=== PATIENT | male | born 1975 | race Caucasian/White ===

== ENCOUNTER 2016-10-13 10:42 | Emergency (ER) | payer MEDICAID, OTHER ==
[2016-10-13] MEDS ORDERED: Ibuprofen TAB* 800 MG PO ONE (11:23)
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
--- NOTE | 2016-10-13 11:52 | RAD ---
INDICATION: Left shoulder injury. TECHNIQUE: 3 views of the left shoulder were obtained. FINDINGS: There is deformity of the lateral aspect of the humeral head and metaphysis likely posttraumatic. There is a single surgical strut present. No acute fracture is seen. Joint spaces appear maintained. IMPRESSION: DEFORMITY OF THE PROXIMAL HUMERUS LIKELY POSTTRAUMATIC, NO ACUTE FRACTURE IS SEEN.
[2016-10-13] MEDS ORDERED: Cyclobenzaprine TAB* 10 MG PO ONE (12:08)
[2016-10-13 12:30] VITALS: BP 120/83
== END 2016-10-13 12:29 | disposition home or self-care (01) ==
LOC: ED 10:42
DX: M25.512 Pain in left shoulder (principal)
CPT/HCPCS: 99282; A9270-GY

== ENCOUNTER 2016-10-31 13:47 | Emergency (ER) | payer OTHER ==
[2016-10-31] MEDS ORDERED: Gabapentin CAP(*) 300 MG PO ONE (14:01)
[2016-10-31] MEDS ORDERED: Gabapentin CAP(*) 400 MG PO ONE (15:00)
[2016-10-31] MEDS ORDERED: Gabapentin CAP(*) 300 MG ONE (15:19)
[2016-10-31] MEDS ORDERED: Gabapentin CAP(*) 100 MG ONE (15:19)
[2016-10-31] MEDS ORDERED: Ibuprofen TAB* 800 MG PO ONE (15:20)
--- NOTE | 2016-10-31 15:57 | RAD ---
Indication: Left arm pain with swelling over the biceps area. CT of the left upper arm was performed without IV contrast. Coronal and sagittal reconstructed images were obtained. The patient has had prior repair to the biceps tendon. Deformity of the lateral aspect of the greater tuberosity is again noted with what appears to be a bony fragment present in the posterior aspect of the humeral head within the infraspinatus muscle. This is a chronic finding and was present on a prior x-ray dated October 13, 2016. There is a fluid collection in the mid shaft of the humerus just deep to the biceps muscle measuring 4.4 x 2.5 x 2.6 cm. IMPRESSION: Fluid collection just deep to the biceps muscle region in the proximal diaphysis of the humerus measuring 4.4 x 2.6 x 2.5 cm. No evidence of fracture is identified. Chronic bony changes and deformity of the humeral head is noted unchanged from prior x-rays.
--- NOTE | 2016-10-31 16:50 | ED ---
Luis Bundy Alok, scribed for Kena Garcia MD on 10/31/16 at 1434 . Upper Extremity Pain - HPI Summary HPI Summary: 41 y/o male presents to the ED with c/o pain in his LUE. Pt states he last had left shoulder surgery 2 years ago. No other PMHx at this time. - History of Current Complaint Chief Complaint: EDExtremityUpper Stated Complaint: LEFT ARM PAIN Time Seen by Provider: 10/31/16 13:50 Hx Obtained From: Patient Onset/Duration: Started Days Ago, Atraumatic, Still Present Timing: Constant Severity Initially: Moderate Severity Currently: Moderate Pain Location: Shoulder - Left Character: Sharp Aggravating Factor(s): Nothing Alleviating Factor(s): Nothing Associated Signs & Symptoms: Positive: Negative - Allergies/Home Medications Allergies/Adverse Reactions: Allergies Allergy/AdvReac Type Severity Reaction Status Date / Time No Known Allergies Allergy Verified 10/31/16 13:49 PMH/Surg Hx/FS Hx/Imm Hx Endocrine/Hematology History: Denies: Hx Diabetes Cardiovascular History: Denies: Hx Hypertension, Hx Pacemaker/ICD Respiratory History: Denies: Hx Asthma History: Denies: Hx Dialysis, Hx Renal Disease Musculoskeletal History: Reports: Hx Rheumatoid Arthritis, Other Musculoskeletal History - chronic left shoulder pain and previous surgery. Sensory History: Denies: Hx Hearing Aid Neurological History: Reports: Other Neuro Impairments/Disorders - Hx Concussions Psychiatric History: Reports: Hx Anxiety, Hx Depression, Hx of Violent Episodes Against Others, Hx Substance Abuse Denies: Hx Eating Disorder, Hx Panic Disorder - Surgical History Surgery Procedure, Year, and Place: plastic surgery to face from a laceration to cheek Infectious Disease History: Yes Infectious Disease History: Denies: Traveled Outside the [place] in Last 30 Days - Family History Known Family History: Positive: Cardiac Disease, Respiratory Disease, Other - cancer, alcoholism, anxiety, depression - Social History Occupation: Unemployed Alcohol Use: None Hx Substance Use: No Substance Use Type: Reports: None, Marijuana Substance Use Comment - Amount & Last Used: has hx cocaine /heroin use 6 months ago Hx Tobacco Use: Yes Smoking Status (MU): Light Every Day Tobacco Smoker Type: Cigarettes, Smokeless Tobacco Review of Systems Negative: Fever Positive: Other - Left Shoulder Pain All Other Systems Reviewed And Are Negative: Yes Physical Exam Triage Information Reviewed: Yes Vital Signs On Initial Exam: Initial Vitals Temp Pulse Resp BP Pulse Ox 96.9 F 65 16 142/95 100 10/31/16 13:49 10/31/16 13:49 10/31/16 13:49 10/31/16 13:49 10/31/16 13:49 Vital Signs Reviewed: Yes Appearance: Positive: Well-Appearing, No Pain Distress Skin: Positive: Warm, Skin Color Reflects Adequate Perfusion, Dry Eyes: Positive: EOMI, ROMEO ENT: Positive: Pharynx normal, TMs normal Neck: Positive: Supple, Nontender Respiratory/Lung Sounds: Positive: Clear to Auscultation, Breath Sounds Present. Negative: Rales, Rhonchi, Wheezes Cardiovascular: Positive: RRR. Negative: Murmur, Rub, Other - Gallops Abdomen Description: Positive: Nontender, Soft Bowel Sounds: Positive: Present Musculoskeletal: Positive: Strength/ROM Intact, Other - 5 cm swelling over medial epicondyle of the humerus Diagnostics - Vital Signs Vital Signs Temp Pulse Resp BP Pulse Ox 10/31/16 13:49 96.9 F 65 16 142/95 100 - Laboratory Lab Statement: Any lab studies that have been ordered have been reviewed, and results considered in the medical decision making process. - CT Upper Extremity CT CT Interpretation: Positive (See Comments) - IMPRESSION: Fluid collection just deep to the biceps muscle region in the proximal diaphysis of the humerus measuring 4.4 x 2.6 x 2.5 cm. No evidence of fracture is identified. Chronic bony changes and deformity of the humeral head is noted unchanged from prior x- rays. CT Interpretation Completed By: Radiologist Course/Dx - Course Course Of Treatment: discussion with both Dougie and Cam, fluid collection does not look like blood or abscess. Cam to see pt as out pt likely will need an outpt mri - Diagnoses Provider Diagnoses: Shoulder pain, left - Physician Notifications Discussed Care Of Patient With: Dr. Levy (Ortho) @ 1840 Discharge - Discharge Plan Condition: Stable Disposition: HOME The documentation as recorded by the Luis guardado Alok accurately reflects the service I personally performed and the decisions made by me, Kena Garcia MD.
[2016-10-31 17:32] VITALS: BP 136/73
== END 2016-10-31 17:31 | disposition home or self-care (01) ==
LOC: ED 13:47
DX: M25.512 Pain in left shoulder (principal); M79.602 Pain in left arm; F17.210 Nicotine dependence, cigarettes, uncomplicated
CPT/HCPCS: 99281; A9270-GY

== ENCOUNTER → 2016-12-16 17:12 | Emergency (ER) | payer OTHER ==
--- NOTE | 2016-12-16 18:29 | RAD ---
HISTORY: Foreign body COMPARISONS: None VIEWS: 2: Frontal dual-energy and lateral views of the chest. FINDINGS: CARDIOMEDIASTINAL SILHOUETTE: The cardiomediastinal silhouette is normal. YINKA: The yinka are normal. PLEURA: The costophrenic angles are sharp. No pleural abnormalities are noted. There is no appreciable pneumothorax. LUNG PARENCHYMA: The lungs are clear. ABDOMEN: The upper abdomen is clear. There is no subphrenic gas. BONES AND SOFT TISSUES: No bone or soft tissue abnormalities are noted. OTHER: There is a 0.8 cm radiopaque foreign body overlying the superior margin of the right clavicle IMPRESSION: LINEAR FOREIGN BODY OVERLYING THE RIGHT CLAVICLE. NO ACTIVE CARDIOPULMONARY DISEASE.
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
== END | disposition home or self-care (01) ==
LOC: ED 17:12
DX: S11.84XA Puncture wound with foreign body of other specified part of neck, initial encounter (principal); W27.3XXA Contact with needle (sewing), initial encounter; Y93.9 Activity, unspecified; Y92.9 Unspecified place or not applicable
CPT/HCPCS: 71020; 99282

== ENCOUNTER → 2017-02-04 08:52 | Emergency (ER) | payer OTHER ==
[2017-02-04 09:02] VITALS: BP 137/81
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
== END ==
LOC: ED 08:52
DX: M25.512 Pain in left shoulder (principal); M79.1 Myalgia; F17.210 Nicotine dependence, cigarettes, uncomplicated
CPT/HCPCS: 99281

== ENCOUNTER → 2017-02-15 14:32 | Emergency (ER) | payer OTHER ==
[~2017-02-15 14:32] MED LIST: Buprenorphine/Naloxone 8-2 MG SL TAB* 1 TAB PO ONE; Gabapentin CAP(*) 400 MG PO ONE; Sulfamethox/Trimethoprim DS 800/160* TAB PO ONE
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
[2017-02-15 19:03] VITALS: BP 131/78
== END | disposition home or self-care (01) ==
LOC: ED 14:32
DX: L02.414 Cutaneous abscess of left upper limb (principal); M06.9 Rheumatoid arthritis, unspecified; F17.210 Nicotine dependence, cigarettes, uncomplicated
CPT/HCPCS: 99282; A9270-GY

== ENCOUNTER 2017-08-02 14:53 | Inpatient (IN) | payer OTHER ==
[2017-08-02 16:27] LABS: ABS Basophils 0.1 10^3/ul (0-0.2); ABS Eosinophils 0.1 10^3/ul (0-0.6); ABS Lymphocytes 1.8 10^3/ul (1.0-4.8); ABS Monocytes 0.5 10^3/ul (0-0.8); ABS Neutrophils 4.1 10^3/ul (1.5-7.7); ABS Nucleated RBC 0.01 10^3/ul; Eosinophil % 2.2 % (0-6); Hematocrit 42 % (42-52); Hemoglobin 14.3 g/dl (14.0-18.0); Lymphocyte % 27.4 % (25-47); Mean Corpuscular HGB Conc 34 g/dl (31-36); Mean Corpuscular Hemoglobin 27 pg (27-31); Mean Corpuscular Volume 80 fL (80-94); Mean Platelet Volume 8 um3 (7.4-10.4); Nucleated Red Blood Cells % 0.2; Platelet Count 233 10^3/ul (150-450); Red Blood Count 5.24 10^6/ul (4.0-5.4); Red Cell Distribution Width 13 % (10.5-15); White Blood Count 6.6 10^3/ul (3.5-10.8)
[2017-08-02 16:44] LABS: EGFR Non-African American 128.9 (>60)
--- NOTE | 2017-08-02 16:48 | RAD ---
INDICATION: Left shoulder wound COMPARISON: None TECHNIQUE: An AP portable view obtained at 1615 hours is submitted. FINDINGS: Bones/Soft Tissues: There are no acute bony findings. Cardiomediastinal: The cardiomediastinal silhouette is normal. Lungs: There are no infiltrates. Pleura: There are no pleural effusions. Other: None IMPRESSION: NO ACTIVE DISEASE.
[2017-08-02] MEDS ORDERED: Ketorolac INJ* 30 MG/ML 1 ML VIAL IV PUSH ONE (16:55)
[2017-08-02] MEDS ORDERED: Diazepam SYRINGE* 5 MG/ML 2 ML SYRINGE (10 MG total) IV ONE (16:56)
[2017-08-02 16:59] LABS: INR 0.89 (0.77-1.02)
[2017-08-02] MEDS: NS 0.9% 1000 ML*IV.FLUID IV ONE (17:28)
--- NOTE | 2017-08-02 17:32 | RAD ---
INDICATION: Left shoulder pain. Advanced degenerative disease. Prior surgery. Septic arthritis. COMPARISON: MRI December 19, 2016; left humerus November 16, 2016 TECHNIQUE: AP, lateral, and oblique views were obtained. FINDINGS: There is resection osteolysis about the lateral margin of the humeral head and neck. There is orthopedic screw centered in an area of rarefaction at the level of the neck. There is very little radiographic change. There is advanced degenerative change about the glenohumeral joint with joint space narrowing. The remaining portion of the humeral head is high riding. There is soft tissue swelling about the proximal humerus. No additional findings. IMPRESSION: CHRONIC DEGENERATIVE AND POSTSURGICAL CHANGES WITH PRESUMED OSTEOLYSIS RELATED TO SURGERY AND/OR OSTEOMYELITIS. THE FINDINGS ARE ESSENTIALLY UNCHANGED.
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
[2017-08-02 20:03] LABS: Urine Appearance Clear; Urine Blood Negative (Negative); Urine Color Amber; Urine Ketones Negative (Negative); Urine Protein Negative (Negative); Urine Specific Gravity 1.036 (1.010-1.030); Urine Urobilinogen Positive (Negative)
[2017-08-02] MEDS ORDERED: Ondansetron INJ* 2 MG/ML VIAL IV PRN (20:27)
[2017-08-02] MEDS ORDERED: HYDROmorphone INJ* 2 MG/ML CARPUJECT SYRINGE IV SLOW PU ONE (20:27)
[2017-08-02] MEDS ORDERED: Acetaminophen TAB* 325 MG PO PRN (20:27)
[2017-08-02] MEDS: NS 0.9% 1000 ML* 1,000 ML IV SCH (22:53)
[2017-08-02] MEDS: ceFAZolin 2 GM PREMIX (*) 2 GM/50 ML BAG IVPB SCH (22:55)
[2017-08-02] MEDS: Gabapentin CAP(*) 400 MG PO SCH (22:57)
[2017-08-02] MEDS: Heparin VIAL(*) 5000 UNITS/ML VIAL (FIVE THOUSAND) SUBCUT SCH (22:58)
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
[2017-08-03] MEDS: Heparin VIAL(*) 5000 UNITS/ML VIAL (FIVE THOUSAND) SUBCUT SCH ×3 (05:22→22:37)
[2017-08-03] MEDS: ceFAZolin 2 GM PREMIX (*) 2 GM/50 ML BAG IVPB SCH ×3 (05:23→22:22)
[2017-08-03] MEDS: oxyCODONE/Acetamin 5/325 MG* TAB PO PRN ×4 (06:14→23:29)
[2017-08-03] MEDS: Gabapentin CAP(*) 400 MG PO SCH ×3 (07:42→20:00)
--- NOTE | 2017-08-03 08:47 | RAD ---
INDICATION: Osteomyelitis left shoulder. COMPARISON: Comparison is made with prior x-ray studies of the left shoulder from November 16, 2016 and August 02, 2017. TECHNIQUE: Axial, sagittal and coronal T1 and T2-weighted images of the left shoulder were obtained. FINDINGS: There are postoperative changes from a presumed rotator cuff tendon repair. There is a surgical anchor present within the humeral head with marked surrounding osteolysis and fluid. There is a sinus tract extending from a fluid collection the lateral deltoid region to the humeral head in the region of osteolysis highly suspicious for osteomyelitis and the possibility of a Wm's abscess cannot be excluded. There is edema within the humeral head and metaphysis and marked erosion involving the lateral aspect of the humeral head. There is severe osteoarthritic change in the glenohumeral joint and edema within the glenoid process of the scapula presumably from arthritic change although the possibility of osteomyelitis in this region cannot be ruled out. The rotator cuff is not well-defined on this study although there is increased signal intensity in the distal supraspinatus tendon consistent with tendinosis or partial tearing. There are hypertrophic changes around the acromioclavicular joint and findings predisposing to subacromial impingement. The remaining rotator cuff tendons appear intact. The long head of the biceps tendon is not well-defined on this study. IMPRESSION: 1. POSTSURGICAL CHANGES PRESUMABLY FROM A PRIOR ROTATOR CUFF TENDON REPAIR. THERE IS MARKED OSTEOLYSIS AROUND A SURGICAL ANCHOR WITHIN THE HUMERAL HEAD. 2. SINUS TRACT EXTENDING FROM A FLUID COLLECTION POSSIBLY REPRESENTING AN ABSCESS IN THE DELTOID REGION TO THE HUMERAL HEAD AND EDEMA WITHIN THE HUMERAL HEAD AND METAPHYSIS MOST CONSISTENT WITH OSTEOMYELITIS THE POSSIBILITY OF A WM'S ABSCESS CANNOT BE EXCLUDED. 3. SEVERE OSTEOARTHRITIC CHANGE IN THE GLENOHUMERAL JOINT. THERE IS ALSO EDEMA WITHIN THE SCAPULA DIFFERENTIAL DIAGNOSIS WOULD INCLUDE REACTIVE CHANGE SECONDARY TO ARTHRITIS ALTHOUGH OSTEOMYELITIS IN THIS REGION CANNOT BE EXCLUDED. 4. PARTIAL TEAR VERSUS TENDINOSIS OF THE DISTAL SUPRASPINATUS TENDON.
--- NOTE | 2017-08-03 08:58 | RAD ---
INDICATION: Left foot swelling evaluate for osteomyelitis. COMPARISON: Comparison is made with a prior x-ray study of the left foot from January 12, 2016. TECHNIQUE: Axial, sagittal and coronal T1 and T2-weighted images of the left foot were obtained. FINDINGS: There is soft tissue swelling and fluid tracking along the dorsal aspect of the foot. The bones are normal in signal intensity. No bone marrow edema or significant focal osseous abnormality is seen. The Lisfranc ligament appears intact. The tendons are normal in shape and signal intensity. The plantar fascia appears to be within normal limits. IMPRESSION: SOFT TISSUE SWELLING, NO EVIDENCE FOR OSTEOMYELITIS OR ABSCESS.
[2017-08-03] MEDS: LORazepam INJ* 2 MG/ML 1 ML VIAL IV PUSH PRN (10:40)
[2017-08-03] MEDS: NS 0.9% 1000 ML* 1,000 ML IV SCH ×2 (10:41→22:22)
[2017-08-03] MEDS: Ibuprofen TAB* 600 MG PO SCH ×2 (11:31→19:59)
--- NOTE | 2017-08-03 14:34 | PN ---
Progress Note - Progress Note Date of Service: 08/03/17 SOAP: Subjective: []Patient seen at bedside. He has suffered from an open, draining lesion of his left shoulder x 5-6 months. He has a history of rotator cuff repair of this shoulder in 2014. His left shoulder is minimally painful. Denies CP, SOB, dizziness. Objective: [] Vital Signs Temp 98.2 F 08/03/17 12:31 Pulse 88 08/03/17 12:31 Resp 16 08/03/17 14:04 BP 118/61 08/03/17 12:31 Pulse Ox 97 08/03/17 12:31 Intake & Output 08/02/17 08/03/17 08/03/17 18:59 06:59 18:59 Intake Total 5856 1060 Output Total 400 2 Balance 5456 1058 Weight 180 lb 180 lb Intake: IV Fluids 5456 1050 NS (0.9%) 556 1000 cefazolin 50 IVPB 10 NS (0.9%) 10 Oral 400 0 Output: Urine 400 Straight Cath 2 Other: Estimated Void Medium Medium # Bowel Movements 0 1 Estimated Stool Amount Medium # Voids 1 Laboratory Last Values WBC 6.6 10^3/ul (3.5-10.8) 08/02/17 16:09 RBC 5.24 10^6/ul (4.0-5.4) 08/02/17 16:09 Hgb 14.3 g/dl (14.0-18.0) 08/02/17 16:09 Hct 42 % (42-52) 08/02/17 16:09 MCV 80 fL (80-94) 08/02/17 16:09 MCH 27 pg (27-31) 08/02/17 16:09 MCHC 34 g/dl (31-36) 08/02/17 16:09 RDW 13 % (10.5-15) 08/02/17 16:09 Plt Count 233 10^3/ul (150-450) 08/02/17 16:09 MPV 8 um3 (7.4-10.4) 08/02/17 16:09 Neut % (Auto) 61.3 % (38-83) 08/02/17 16:09 Lymph % (Auto) 27.4 % (25-47) 08/02/17 16:09 Garvin % (Auto) 7.8 % (1-9) 08/02/17 16:09 Eos % (Auto) 2.2 % (0-6) 08/02/17 16:09 Baso % (Auto) 1.3 % (0-2) 08/02/17 16:09 Absolute Neuts (auto) 4.1 10^3/ul (1.5-7.7) 08/02/17 16:09 Absolute Lymphs (auto) 1.8 10^3/ul (1.0-4.8) 08/02/17 16:09 Absolute Monos (auto) 0.5 10^3/ul (0-0.8) 08/02/17 16:09 Absolute Eos (auto) 0.1 10^3/ul (0-0.6) 08/02/17 16:09 Absolute Basos (auto) 0.1 10^3/ul (0-0.2) 08/02/17 16:09 Absolute Nucleated RBC 0.01 10^3/ul 08/02/17 16:09 Nucleated RBC % 0.2 08/02/17 16:09 ESR 26 mm/Hr (0-14) H 08/02/17 16:09 INR (Anticoag Therapy) 0.89 (0.77-1.02) 08/02/17 16:35 APTT 31.7 seconds (26.0-36.3) 08/02/17 16:35 Sodium 137 mmol/L (133-145) 08/02/17 16:09 Potassium 3.9 mmol/L (3.5-5.0) 08/02/17 16:09 Chloride 102 mmol/L (101-111) 08/02/17 16:09 Carbon Dioxide 27 mmol/L (22-32) 08/02/17 16:09 Anion Gap 8 mmol/L (2-11) 08/02/17 16:09 BUN 10 mg/dL (6-24) 08/02/17 16:09 Creatinine 0.67 mg/dL (0.67-1.17) 08/02/17 16:09 Est GFR ( Amer) 165.7 (>60) 08/02/17 16:09 Est GFR (Non-Af Amer) 128.9 (>60) 08/02/17 16:09 BUN/Creatinine Ratio 14.9 (8-20) 08/02/17 16:09 Glucose 98 mg/dL (70-100) 08/02/17 16:09 Lactic Acid 0.8 mmol/L (0.5-2.0) 08/02/17 16:58 Calcium 9.5 mg/dL (8.6-10.3) 08/02/17 16:09 Total Bilirubin 0.40 mg/dL (0.2-1.0) 08/02/17 16:09 AST 22 U/L (13-39) 08/02/17 16:09 ALT 15 U/L (7-52) 08/02/17 16:09 Alkaline Phosphatase 138 U/L (34-104) H 08/02/17 16:09 Total Creatine Kinase 80 U/L (10-223) 08/02/17 16:09 Troponin I 0.00 ng/mL (<0.04) 08/02/17 16:09 C-Reactive Protein 30.37 mg/L (< 5.00) H 08/02/17 16:09 Total Protein 7.3 g/dL (6.4-8.9) 08/02/17 16:09 Albumin 4.0 g/dL (3.2-5.2) 08/02/17 16:09 Globulin 3.3 g/dL (2-4) 08/02/17 16:09 Albumin/Globulin Ratio 1.2 (1-3) 08/02/17 16:09 Urine Color Yenifer 08/02/17 14:50 Urine Appearance Clear 08/02/17 14:50 Urine pH 5.0 (5-9) 08/02/17 14:50 Ur Specific [place] 1.036 (1.010-1.030) H 08/02/17 14:50 Urine Protein Negative (Negative) 08/02/17 14:50 Urine Ketones Negative (Negative) 08/02/17 14:50 Urine Blood Negative (Negative) 08/02/17 14:50 Urine Nitrate Negative (Negative) 08/02/17 14:50 Urine Bilirubin 1+ (Negative) 08/02/17 14:50 Urine Urobilinogen Positive (Negative) H 08/02/17 14:50 Ur Leukocyte Esterase Negative (Negative) 08/02/17 14:50 Urine Glucose Negative (Negative) 08/02/17 14:50 Urine Ascorbic Acid * (Negative) H 08/02/17 14:50 Urine Opiates Screen Presumptive positive (None Detect) H 08/02/17 20:55 Ur Barbiturates Screen None detected (None Detect) 08/02/17 20:55 Ur Phencyclidine Scrn None detected (None Detect) 08/02/17 20:55 Ur Amphetamines Screen Presumptive positive (None Detect) H 08/02/17 20:55 U Benzodiazepines Scrn Presumptive positive (None Detect) H 08/02/17 20:55 Urine Cocaine Screen None detected (None Detect) 08/02/17 20:55 U Cannabinoids Screen Presumptive positive (None Detect) H 08/02/17 20:55 General: Patient is sleeping and takes a long time to answer questions, though does respond appropriately. LUE: dime size lesion of deltoid with purulent drainage. Minimal surrounding erythema and no streaking erythema. L shoulder nontender to palpation. passive ROM nonpainful to 90 degrees forward flexion and abduction. Sensation intact distally, radial pulse 2+, brisk capillary refill distally. Assessment: []Osteomyelitis left shoulder Plan: []Patient will require I&D, likely tomorrow. Will make him NPO for tomorrow tentatively IV abx per ID
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
--- NOTE | 2017-08-03 16:43 | PN ---
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 Reports close relationship with Kena Garcia who prescribes suboxone He is declining suboxone now Objective Active Medications: Acetaminophen (Tylenol Tab*) 650 mg PO Q4H PRN PRN Reason: FEVER/PAIN Gabapentin (Neurontin Cap(*)) 800 mg PO TID [facility] Last Admin: 08/03/17 13:10 Dose: 800 mg Heparin Sodium (Porcine) (Heparin Vial(*)) 5,000 units SUBCUT Q8HR [facility] Last Admin: 08/03/17 13:10 Dose: 5,000 units Cefazolin Sodium/Dextrose (Kefzol 2 Gm Premix(*)) 2 gm in 50 mls @ 100 mls/hr IVPB Q8H [facility] Last Admin: 08/03/17 13:10 Dose: 100 mls/hr Sodium Chloride (Ns 0.9% 1000 Ml*) 1,000 mls @ 100 mls/hr IV PER RATE [facility] Last Admin: 08/03/17 10:41 Dose: 100 mls/hr Ibuprofen (Motrin Tab*) 600 mg PO Q8H [facility] Stop: 08/04/17 11:01 Last Admin: 08/03/17 11:31 Dose: 600 mg Lorazepam (Ativan Inj*) 1 mg IV PUSH Q6H PRN PRN Reason: ANXIETY Last Admin: 08/03/17 10:40 Dose: 1 mg Ondansetron HCl (Zofran Inj*) 4 mg IV Q6H PRN PRN Reason: NAUSEA Last Admin: 08/03/17 06:00 Dose: 4 mg Oxycodone/Acetaminophen (Percocet 5/325 Tab*) 2 tab PO Q4H PRN PRN Reason: PAIN Last Admin: 08/03/17 10:39 Dose: 2 tab Vital Signs - 8 hr 08/03/17 08/03/17 08/03/17 09:53 10:39 10:40 Temperature Pulse Rate Respiratory 16 18 18 Rate Blood Pressure (mmHg) O2 Sat by Pulse Oximetry 08/03/17 08/03/17 08/03/17 11:25 11:26 12:31 Temperature 98.2 F Pulse Rate 88 Respiratory 16 16 18 Rate Blood Pressure 118/61 (mmHg) O2 Sat by Pulse 97 Oximetry 08/03/17 08/03/17 08/03/17 13:10 14:04 16:11 Temperature 97.5 F Pulse Rate 89 Respiratory 16 16 16 Rate Blood Pressure 126/82 (mmHg) O2 Sat by Pulse 99 Oximetry Oxygen Devices in Use Now: None Appearance: sitting up interactive, NAD Eyes: No Scleral Icterus, PERRLA Ears/Nose/Mouth/Throat: Mucous Membranes Moist Neck: NL Appearance and Movements; NL JVP, Trachea Midline Respiratory: Symmetrical Chest Expansion and Respiratory Effort, Clear to Auscultation Cardiovascular: NL Sounds; No Murmurs; No JVD, RRR Abdominal: NL Sounds; No Tenderness; No Distention, No Hepatosplenomegaly Lymphatic: No Cervical Adenopathy Extremities: No Edema, No Clubbing, Cyanosis, - - pain in left shoulder with abduction at 90 deg, draining purulent material Neurological: Alert and Oriented x 3 Result Diagrams: 08/02/17 16:09 08/02/17 16:09 Additional Lab and Data: Lab Results 08/02/17 08/02/17 Range/Units 16:09 16:09 WBC 6.6 (3.5-10.8) 10^3/ul RBC 5.24 (4.0-5.4) 10^6/ul Hgb 14.3 (14.0-18.0) g/dl Hct 42 (42-52) % MCV 80 (80-94) fL MCH 27 (27-31) pg MCHC 34 (31-36) g/dl RDW 13 (10.5-15) % Plt Count 233 (150-450) 10^3/ul MPV 8 (7.4-10.4) um3 Neut % (Auto) 61.3 (38-83) % Lymph % (Auto) 27.4 (25-47) % [place] % (Auto) 7.8 (1-9) % Eos % (Auto) 2.2 (0-6) % Baso % (Auto) 1.3 (0-2) % Absolute Neuts (auto) 4.1 (1.5-7.7) 10^3/ul Absolute Lymphs (auto) 1.8 (1.0-4.8) 10^3/ul Absolute Monos (auto) 0.5 (0-0.8) 10^3/ul Absolute Eos (auto) 0.1 (0-0.6) 10^3/ul Absolute Basos (auto) 0.1 (0-0.2) 10^3/ul Absolute Nucleated RBC 0.01 10^3/ul Nucleated RBC % 0.2 ESR Pending Sodium 137 (133-145) mmol/L Potassium 3.9 (3.5-5.0) mmol/L Chloride 102 (101-111) mmol/L Carbon Dioxide 27 (22-32) mmol/L Anion Gap 8 (2-11) mmol/L BUN 10 (6-24) mg/dL Creatinine 0.67 (0.67-1.17) mg/dL Est GFR ( Amer) 165.7 (>60) Est GFR (Non-Af Amer) 128.9 (>60) BUN/Creatinine Ratio 14.9 (8-20) Glucose 98 (70-100) mg/dL Calcium 9.5 (8.6-10.3) mg/dL Total Bilirubin 0.40 (0.2-1.0) mg/dL AST 22 (13-39) U/L ALT 15 (7-52) U/L Alkaline Phosphatase 138 H (34-104) U/L Total Creatine Kinase 80 (10-223) U/L Troponin I 0.00 (<0.04) ng/mL C-Reactive Protein 30.37 H (< 5.00) mg/L Total Protein 7.3 (6.4-8.9) g/dL Albumin 4.0 (3.2-5.2) g/dL Globulin 3.3 (2-4) g/dL Albumin/Globulin Ratio 1.2 (1-3) Assess/Plan/Problems-Billing Assessment: 42 yo M polysubstance and IV drug abuse presents with left shoulder pain found with draining abscess and suspected osteomyeolitis with planned surgery 08/04 - Patient Problems (1) Osteomyelitis of shoulder, left Comment: With draining abscess OR tomorrow Staph as suspected agent Cefazolin ID and ortho consults Will need fpc antibiotocs (2) Opiate addiction Comment: Receiving suboxone but unclear from prescriber if he is taking it or selling it Possible alternatives include methadone Suspect need for inpatient opioids for increased pain Schedule motrin gabapentin PRN ativan (3) DVT prophylaxis Comment: HSQ
[2017-08-03] MEDS: HYDROmorphone INJ* 1 MG/ML CARPUJECT SYRINGE IV SLOW PU PRN (21:43)
[2017-08-04] MEDS: HYDROmorphone INJ* 1 MG/ML CARPUJECT SYRINGE IV SLOW PU PRN ×4 (04:48→23:28)
[2017-08-04] MEDS: LORazepam INJ* 2 MG/ML 1 ML VIAL IV PUSH PRN ×3 (05:04→20:03)
[2017-08-04] MEDS: Ibuprofen TAB* 600 MG PO SCH ×2 (05:12→10:57)
[2017-08-04] MEDS: ceFAZolin 2 GM PREMIX (*) 2 GM/50 ML BAG IVPB SCH ×3 (05:36→17:21)
[2017-08-04] MEDS: Heparin VIAL(*) 5000 UNITS/ML VIAL (FIVE THOUSAND) SUBCUT SCH ×3 (05:38→22:44)
--- NOTE | 2017-08-04 05:54 | HP ---
H&P (Free Text) History and Physical: LATE ENTRY 08/02/20172099 Mr Mancera is a 42M HX IV drug use, bipolar disorder, PTSD, TBI, Hep C, anxiety , & depression presenting with L shoulder wound with cellulitis for which orthopedic surgery is planning a wash out. He will be admitted for IVFs & ABX as well as surgical management of the wound.
[2017-08-04] MEDS: Gabapentin CAP(*) 400 MG PO SCH ×2 (09:13→14:54)
[2017-08-04] MEDS: oxyCODONE/Acetamin 5/325 MG* TAB PO PRN ×3 (09:14→23:28)
[2017-08-04] MEDS: NS 0.9% 1000 ML* 1,000 ML IV SCH (09:49)
--- NOTE | 2017-08-04 10:24 | PN ---
Progress Note - Progress Note Date of Service: 08/04/17 SOAP: Subjective: CC: left shoulder infection HPI: 42 year old man with L shoulder sinus tract and chronic shoulder pain, past rotator cuff repair, recent I&D at an OSH. Now with purulent drainage from tract and worsening pain. No fever, rash, or diarrhea. Anxious about surgery today. Objective: [] Vital Signs Temp 36.7 C 08/04/17 07:30 Pulse 64 08/04/17 07:30 Resp 14 08/04/17 10:08 BP 110/75 08/04/17 07:30 Pulse Ox 98 08/04/17 07:30 Intake & Output 08/03/17 08/04/17 08/04/17 18:59 06:59 18:59 Intake Total 1460 2613 0 Output Total 2 2600 Balance 1458 13 0 Intake: IV Fluids 1050 1654 NS (0.9%) 1000 1654 cefazolin 50 IVPB 10 119 NS (0.9%) 10 cefazolin 119 Oral 400 840 0 Output: Urine 2600 Straight Cath 2 Other: Estimated Void Medium # Bowel Movements 1 0 Estimated Stool Amount Medium # Voids 1 Gen:awake, no distress HEENT:PERRL, MMM Heart:RRR no murmur Lungs:CTA BL Abd:+BS NTND soft Skin: no rash MSK: L shoulder healed anterior incision w 5 mm wound and mild erythema Microbiology 08/02/17 16:37 Skin and Soft Tissue MRSA/MSSA (PCR - Final Shoulder Left Mrsa Negative S.aureus Positive Gram Stain - Final Wound Culture - Final Staphylococcus Aureus 08/02/17 16:35 Aerobic Blood Culture - Preliminary Blood Venous No Growth Day 1 Anaerobic Blood Culture - Preliminary No Growth Day 1 08/02/17 16:09 Aerobic Blood Culture - Preliminary Blood Venous No Growth Day 1 Anaerobic Blood Culture - Preliminary No Growth Day 1 Assessment: 1. MSSA chronic osteomyelitis, left proximal humerus ?involvement of metal used in cuff repair 2. 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 left shoulder pain 4. HCV Plan: 1. continue ancef 2 gm IV Q8 hrs; I&D today, discussed with Dr Montes De Oca 08/03 2. long course antibiotics; IV for as long as he will stay here 3. ?role for methadone in pain control
[2017-08-04] MEDS ORDERED: ceFAZolin 2 GM PREMIX (*) 2 GM/50 ML BAG IVPB ONE (13:25)
[2017-08-04] MEDS ORDERED: fentaNYL* 50 MCG/ML 5 ML VIAL (250 MCG VIAL) ONE (13:36)
[2017-08-04] MEDS ORDERED: Midazolam* 1 MG/ML 2 ML VIAL (2 MG) ONE (13:36)
[2017-08-04] MEDS ORDERED: Lidocaine 2% PF * 5 ML VIAL ONE (13:36)
[2017-08-04] MEDS ORDERED: Propofol* 10 MG/ML 20 ML BTL IV PUSH ONE ×2 (13:36→13:49)
--- NOTE | 2017-08-04 13:43 | PN ---
Progress Note - Progress Note Date of Service: 08/04/17 SOAP: Subjective: Drainage unchanged. NPO p midnight. Patient making the pre-op nursing staff feel uncomfortable with initial refusal to remove jewelry and other requests. Objective: NAD Comfortable-appearing LUE - Draining pus from inferior end of prior incision scar - NVID Selected Entries 08/04/17 12:09 Temperature 98.6 F Pulse Rate 61 Respiratory 15 Rate Blood Pressure 134/93 (mmHg) O2 Sat by Pulse 95 Oximetry Laboratory Tests 08/02/17 08/02/17 08/02/17 16:09 16:09 20:55 WBC 6.6 ESR 26 H C-Reactive Protein 30.37 H Urine Opiates Screen Presumptive positive H Ur Barbiturates Screen None detected Ur Phencyclidine Scrn None detected Ur Amphetamines Screen Presumptive positive H U Benzodiazepines Scrn Presumptive positive H Urine Cocaine Screen None detected U Cannabinoids Screen Presumptive positive H Assessment: HD 3 with long-term draining wound left shoulder Left proximal humerus osteomyelitis, chronic Plan: - to OR for I&D, removal of hardware (rotator cuff anchor) - IV antibiotics per Ginette
[2017-08-04] MEDS ORDERED: fentaNYL* 50 MCG/ML 2 ML VIAL (100 MCG VIAL) ONE (14:20)
[2017-08-04] MEDS ORDERED: Bupivacaine 0.25% SDV* 30 ML ONE (14:40)
[2017-08-04] MEDS ORDERED: HYDROmorphone INJ* 1 MG/ML CARPUJECT SYRINGE ONE ×2 (14:45→15:35)
[2017-08-04] MEDS ORDERED: oxyCODONE/Acetamin 5/325 MG* TAB PO PRN (15:03)
[2017-08-04] MEDS ORDERED: fentaNYL* 50 MCG/ML 2 ML VIAL (100 MCG VIAL) IV PRN (15:03)
[2017-08-04] MEDS ORDERED: HYDROmorphone INJ* 1 MG/ML CARPUJECT SYRINGE IV PRN (15:03)
[2017-08-04] MEDS ORDERED: PROCHLORPERAZINE INJ 5 MG/ML 2 ML VIAL IV PRN (15:03)
[2017-08-04] MEDS ORDERED: Ketorolac INJ* 30 MG/ML 1 ML VIAL IV PRN (15:03)
[2017-08-04] MEDS ORDERED: Ondansetron INJ* 2 MG/ML VIAL IV PRN (15:03)
[2017-08-04] MEDS ORDERED: Polyethylene Glycol 3350* 17 GM PACKET PO PRN (17:07)
--- NOTE | 2017-08-04 17:12 | PN ---
Subjective Date of Service: 08/04/17 Interval History: C/O pain L shoulder. He hasn't had a BM since admission. He requests magnesium citrate now, also daily docusate and PEG. Objective Active Medications: Acetaminophen (Tylenol Tab*) 650 mg PO Q4H PRN PRN Reason: FEVER/PAIN Fentanyl Citrate (Fentanyl*) 50 mcg IV Q5M PRN PRN Reason: PAIN - MODERATE Gabapentin (Neurontin Cap(*)) 800 mg PO TID [facility] Last Admin: 08/04/17 14:54 Dose: Not Given Heparin Sodium (Porcine) (Heparin Vial(*)) 5,000 units SUBCUT Q8HR [facility] Last Admin: 08/04/17 14:54 Dose: Not Given Hydromorphone HCl (Dilaudid Injic*) 0.5 mg IV SLOW PU Q4H PRN PRN Reason: PAIN Last Admin: 08/04/17 09:15 Dose: 0.5 mg Hydromorphone HCl (Dilaudid Injic*) 0.5 mg IV Q10M PRN PRN Reason: SEVERE PAIN Cefazolin Sodium/Dextrose (Kefzol 2 Gm Premix(*)) 2 gm in 50 mls @ 100 mls/hr IVPB 0100,0900,1700 [facility] Ketorolac Tromethamine (Toradol Inj*) 30 mg IV ONCE PRN PRN Reason: PAIN - MILD Ondansetron HCl (Zofran Inj*) 4 mg IV Q6H PRN PRN Reason: NAUSEA Last Admin: 08/03/17 06:00 Dose: 4 mg Ondansetron HCl (Zofran Inj*) 4 mg IV ONCE PRN PRN Reason: NAUSEA/VOMITING Oxycodone/Acetaminophen (Percocet 5/325 Tab*) 2 tab PO Q4H PRN PRN Reason: PAIN Last Admin: 08/04/17 09:14 Dose: 2 tab Oxycodone/Acetaminophen (Percocet 5/325 Tab*) 1 tab PO ONCE PRN PRN Reason: PAIN - MODERATE Prochlorperazine Edisylate (Compazine Inj*) 5 mg IV ONCE PRN PRN Reason: NAUSEA/VOMITING Vital Signs - 8 hr 08/04/17 08/04/17 08/04/17 09:13 09:14 09:15 Temperature Pulse Rate Respiratory 22 22 22 Rate Blood Pressure (mmHg) O2 Sat by Pulse Oximetry 08/04/17 08/04/17 08/04/17 10:08 10:58 11:12 Temperature 97.6 F Pulse Rate 62 Respiratory 14 12 18 Rate Blood Pressure 121/79 (mmHg) O2 Sat by Pulse 98 Oximetry 08/04/17 08/04/17 08/04/17 12:09 16:00 16:05 Temperature 98.6 F 97.9 F Pulse Rate 61 84 79 Respiratory 15 14 14 Rate Blood Pressure 134/93 149/92 135/82 (mmHg) O2 Sat by Pulse 95 92 96 Oximetry 08/04/17 08/04/17 08/04/17 16:10 16:15 16:30 Temperature Pulse Rate 75 84 71 Respiratory 14 16 14 Rate Blood Pressure 146/87 145/87 147/89 (mmHg) O2 Sat by Pulse 96 97 98 Oximetry Oxygen Devices in Use Now: None Appearance: Alert, supine in bed. In fair spirits. Looks comfortable. Eyes: No Scleral Icterus Extremities: No Edema, No Clubbing, Cyanosis, - - L shoulder bandaged Skin: No Rash or Ulcers, No Nodules or Sclerosis, - Neurological: Alert and Oriented x 3, NL Sensation Result Diagrams: 08/02/17 16:09 08/02/17 16:09 Additional Lab and Data: Lab Results 08/02/17 08/02/17 Range/Units 16:09 16:09 WBC 6.6 (3.5-10.8) 10^3/ul RBC 5.24 (4.0-5.4) 10^6/ul Hgb 14.3 (14.0-18.0) g/dl Hct 42 (42-52) % MCV 80 (80-94) fL MCH 27 (27-31) pg MCHC 34 (31-36) g/dl RDW 13 (10.5-15) % Plt Count 233 (150-450) 10^3/ul MPV 8 (7.4-10.4) um3 Neut % (Auto) 61.3 (38-83) % Lymph % (Auto) 27.4 (25-47) % [place] % (Auto) 7.8 (1-9) % Eos % (Auto) 2.2 (0-6) % Baso % (Auto) 1.3 (0-2) % Absolute Neuts (auto) 4.1 (1.5-7.7) 10^3/ul Absolute Lymphs (auto) 1.8 (1.0-4.8) 10^3/ul Absolute Monos (auto) 0.5 (0-0.8) 10^3/ul Absolute Eos (auto) 0.1 (0-0.6) 10^3/ul Absolute Basos (auto) 0.1 (0-0.2) 10^3/ul Absolute Nucleated RBC 0.01 10^3/ul Nucleated RBC % 0.2 ESR Pending Sodium 137 (133-145) mmol/L Potassium 3.9 (3.5-5.0) mmol/L Chloride 102 (101-111) mmol/L Carbon Dioxide 27 (22-32) mmol/L Anion Gap 8 (2-11) mmol/L BUN 10 (6-24) mg/dL Creatinine 0.67 (0.67-1.17) mg/dL Est GFR ( Amer) 165.7 (>60) Est GFR (Non-Af Amer) 128.9 (>60) BUN/Creatinine Ratio 14.9 (8-20) Glucose 98 (70-100) mg/dL Calcium 9.5 (8.6-10.3) mg/dL Total Bilirubin 0.40 (0.2-1.0) mg/dL AST 22 (13-39) U/L ALT 15 (7-52) U/L Alkaline Phosphatase 138 H (34-104) U/L Total Creatine Kinase 80 (10-223) U/L Troponin I 0.00 (<0.04) ng/mL C-Reactive Protein 30.37 H (< 5.00) mg/L Total Protein 7.3 (6.4-8.9) g/dL Albumin 4.0 (3.2-5.2) g/dL Globulin 3.3 (2-4) g/dL Albumin/Globulin Ratio 1.2 (1-3) Microbiology and Other Data: Microbiology 08/04/17 14:25 Gram Stain - Final Shoulder Left 08/04/17 14:25 Gram Stain - Final Wound - Shoulder Left Assess/Plan/Problems-Billing Assessment: 42 yo M polysubstance and IV drug abuse presents with left shoulder pain found with draining abscess and suspected osteomyeolitis with planned surgery 08/04 - Patient Problems (1) Osteomyelitis of shoulder, left Current Visit: Yes Status: Acute Code(s): M86.9 - OSTEOMYELITIS, UNSPECIFIED SNOMED Code(s): 12436385 Comment: S/P removal hardware 08/04/17 JOSE in shoulder C&S. Blood C&S NG x 2 day 2. Long course IV cefazolin, ? lifelong antibiotics. PICC requested ID and ortho consults appreciated (2) Opiate addiction Current Visit: Yes Status: Acute Code(s): F11.20 - OPIOID DEPENDENCE, UNCOMPLICATED SNOMED Code(s): 30477275 Comment: Receiving suboxone but unclear from prescriber if he is taking it or selling it Possible alternatives include methadone Suspect need for inpatient opioids for increased pain Schedule motrin Reduce gabapentin to 600 mg tid 08/04, ? benefit. PRN ativan (3) Constipation Current Visit: Yes Status: Acute Code(s): K59.00 - CONSTIPATION, UNSPECIFIED SNOMED Code(s): 21208524 Comment: Mag citrate x 1 ordered, also daily docusate and PEG. (4) Tobacco abuse Current Visit: Yes Status: Acute Code(s): Z72.0 - TOBACCO USE SNOMED Code( s): 131166589 Comment: Dx noted.
[2017-08-04] MEDS ORDERED: Magnesium CITRATE* 300 ML BTL PO ONE (17:15)
[2017-08-04] MEDS: Docusate CAP* 100 MG PO PRN (18:06)
[2017-08-04] MEDS ORDERED: HYDROmorphone INJ* 2 MG/ML CARPUJECT SYRINGE IV SLOW PU ONE (19:34)
[2017-08-04] MEDS: Gabapentin CAP(*) 300 MG PO SCH (22:05)
[2017-08-05] MEDS: ceFAZolin 2 GM PREMIX (*) 2 GM/50 ML BAG IVPB SCH ×3 (00:42→17:23)
[2017-08-05] MEDS: HYDROmorphone INJ* 2 MG/ML CARPUJECT SYRINGE IV SLOW PU PRN ×6 (01:48→21:53)
[2017-08-05] MEDS: LORazepam INJ* 2 MG/ML 1 ML VIAL IV PUSH PRN ×2 (05:53→05:54)
[2017-08-05] MEDS: Heparin VIAL(*) 5000 UNITS/ML VIAL (FIVE THOUSAND) SUBCUT SCH ×3 (06:02→20:44)
[2017-08-05 06:57] LABS: ABS Basophils 0 10^3/ul (0-0.2); ABS Eosinophils 0.2 10^3/ul (0-0.6); ABS Lymphocytes 1.9 10^3/ul (1.0-4.8); ABS Monocytes 0.7 10^3/ul (0-0.8); ABS Neutrophils 5.3 10^3/ul (1.5-7.7); ABS Nucleated RBC 0.01 10^3/ul; Eosinophil % 2.3 % (0-6); Hematocrit 35 % (42-52); Hemoglobin 11.9 g/dl (14.0-18.0); Lymphocyte % 23.3 % (25-47); Mean Corpuscular HGB Conc 34 g/dl (31-36); Mean Corpuscular Hemoglobin 27 pg (27-31); Mean Corpuscular Volume 79 fL (80-94); Mean Platelet Volume 8 um3 (7.4-10.4); Nucleated Red Blood Cells % 0.1; Platelet Count 190 10^3/ul (150-450); Red Blood Count 4.48 10^6/ul (4.0-5.4); Red Cell Distribution Width 13 % (10.5-15)
[2017-08-05 07:30] LABS: ABS Basophils 0 10^3/ul (0-0.2); ABS Eosinophils 0.2 10^3/ul (0-0.6); ABS Lymphocytes 1.6 10^3/ul (1.0-4.8); ABS Monocytes 0.5 10^3/ul (0-0.8); ABS Neutrophils 4.6 10^3/ul (1.5-7.7); ABS Nucleated RBC 0.01 10^3/ul; Eosinophil % 2.6 % (0-6); Hematocrit 34 % (42-52); Hemoglobin 11.9 g/dl (14.0-18.0); Lymphocyte % 22.9 % (25-47); Mean Corpuscular HGB Conc 35 g/dl (31-36); Mean Corpuscular Hemoglobin 27 pg (27-31); Mean Corpuscular Volume 78 fL (80-94); Mean Platelet Volume 8 um3 (7.4-10.4); Nucleated Red Blood Cells % 0.1; Platelet Count 212 10^3/ul (150-450); Red Blood Count 4.39 10^6/ul (4.0-5.4); Red Cell Distribution Width 14 % (10.5-15); White Blood Count 6.8 10^3/ul (3.5-10.8)
[2017-08-05 07:45] LABS: EGFR Non-African American 152.2 (>60)
--- NOTE | 2017-08-05 08:29 | PN ---
Subjective Date of Service: 08/05/17 Interval History: C/O pain L shoulder. He decided to take the mag citrate today. No BM yet. Objective Active Medications: Acetaminophen (Tylenol Tab*) 650 mg PO Q4H PRN PRN Reason: FEVER/PAIN Docusate Sodium (Colace Cap*) 200 mg PO DAILY PRN PRN Reason: CONSTIPATION Last Admin: 08/04/17 18:06 Dose: 200 mg Gabapentin (Neurontin Cap(*)) 600 mg PO TID [facility] Last Admin: 08/04/17 22:05 Dose: 600 mg Heparin Sodium (Porcine) (Heparin Vial(*)) 5,000 units SUBCUT Q8HR [facility] Last Admin: 08/05/17 06:02 Dose: 5,000 units Hydromorphone HCl (Dilaudid Inj*) 0.5 mg IV SLOW PU Q2H PRN PRN Reason: PAIN Last Admin: 08/05/17 05:52 Dose: 0.5 mg Cefazolin Sodium/Dextrose (Kefzol 2 Gm Premix(*)) 2 gm in 50 mls @ 100 mls/hr IVPB 0100,0900,1700 [facility] Last Admin: 08/05/17 00:42 Dose: 100 mls/hr Lorazepam (Ativan Inj*) 1 mg IV PUSH Q6H PRN PRN Reason: ANXIETY Last Admin: 08/05/17 05:54 Dose: 1 mg Ondansetron HCl (Zofran Inj*) 4 mg IV Q6H PRN PRN Reason: NAUSEA Last Admin: 08/03/17 06:00 Dose: 4 mg Oxycodone/Acetaminophen (Percocet 5/325 Tab*) 2 tab PO Q4H PRN PRN Reason: PAIN Last Admin: 08/04/17 23:28 Dose: 2 tab Polyethylene Glycol/Electrolytes (Miralax*) 17 gm PO DAILY PRN PRN Reason: CONSTIPATION Vital Signs - 8 hr 08/05/17 08/05/17 08/05/17 00:47 01:48 02:51 Temperature Pulse Rate Respiratory 16 15 16 Rate Blood Pressure (mmHg) O2 Sat by Pulse Oximetry 08/05/17 08/05/17 08/05/17 03:42 04:47 05:52 Temperature 98.2 F Pulse Rate 93 Respiratory 18 16 18 Rate Blood Pressure 130/69 (mmHg) O2 Sat by Pulse 99 Oximetry 08/05/17 05:54 Temperature Pulse Rate Respiratory 18 Rate Blood Pressure (mmHg) O2 Sat by Pulse Oximetry Oxygen Devices in Use Now: None Appearance: Alert, partly up in bed. In good spirits. Looks comfortable. Extremities: No Edema, - - L shoulder bandaged Skin: No Rash or Ulcers, No Nodules or Sclerosis, - Neurological: Alert and Oriented x 3, NL Sensation Result Diagrams: 08/05/17 07:21 08/05/17 07:21 Additional Lab and Data: Lab Results 08/02/17 08/02/17 Range/Units 16:09 16:09 WBC 6.6 (3.5-10.8) 10^3/ul RBC 5.24 (4.0-5.4) 10^6/ul Hgb 14.3 (14.0-18.0) g/dl Hct 42 (42-52) % MCV 80 (80-94) fL MCH 27 (27-31) pg MCHC 34 (31-36) g/dl RDW 13 (10.5-15) % Plt Count 233 (150-450) 10^3/ul MPV 8 (7.4-10.4) um3 Neut % (Auto) 61.3 (38-83) % Lymph % (Auto) 27.4 (25-47) % [place] % (Auto) 7.8 (1-9) % Eos % (Auto) 2.2 (0-6) % Baso % (Auto) 1.3 (0-2) % Absolute Neuts (auto) 4.1 (1.5-7.7) 10^3/ul Absolute Lymphs (auto) 1.8 (1.0-4.8) 10^3/ul Absolute Monos (auto) 0.5 (0-0.8) 10^3/ul Absolute Eos (auto) 0.1 (0-0.6) 10^3/ul Absolute Basos (auto) 0.1 (0-0.2) 10^3/ul Absolute Nucleated RBC 0.01 10^3/ul Nucleated RBC % 0.2 ESR Pending Sodium 137 (133-145) mmol/L Potassium 3.9 (3.5-5.0) mmol/L Chloride 102 (101-111) mmol/L Carbon Dioxide 27 (22-32) mmol/L Anion Gap 8 (2-11) mmol/L BUN 10 (6-24) mg/dL Creatinine 0.67 (0.67-1.17) mg/dL Est GFR ( Amer) 165.7 (>60) Est GFR (Non-Af Amer) 128.9 (>60) BUN/Creatinine Ratio 14.9 (8-20) Glucose 98 (70-100) mg/dL Calcium 9.5 (8.6-10.3) mg/dL Total Bilirubin 0.40 (0.2-1.0) mg/dL AST 22 (13-39) U/L ALT 15 (7-52) U/L Alkaline Phosphatase 138 H (34-104) U/L Total Creatine Kinase 80 (10-223) U/L Troponin I 0.00 (<0.04) ng/mL C-Reactive Protein 30.37 H (< 5.00) mg/L Total Protein 7.3 (6.4-8.9) g/dL Albumin 4.0 (3.2-5.2) g/dL Globulin 3.3 (2-4) g/dL Albumin/Globulin Ratio 1.2 (1-3) Microbiology and Other Data: Microbiology 08/04/17 14:25 Gram Stain - Final Shoulder Left 08/04/17 14:25 Gram Stain - Final Wound - Shoulder Left Assess/Plan/Problems-Billing Assessment: 42 yo M polysubstance and IV drug abuse presents with left shoulder pain found with draining abscess and suspected osteomyeolitis with planned surgery 08/04 - Patient Problems (1) Osteomyelitis of shoulder, left Current Visit: Yes Status: Acute Code(s): M86.9 - OSTEOMYELITIS, UNSPECIFIED SNOMED Code(s): 17240198 Comment: S/P removal hardware 08/04/17 JOSE in shoulder C&S. Blood C&S NG x 2 day 2. Long course IV cefazolin, ? lifelong antibiotics. PICC requested ID and ortho consults appreciated (2) Opiate addiction Current Visit: Yes Status: Acute Code(s): F11.20 - OPIOID DEPENDENCE, UNCOMPLICATED SNOMED Code(s): 66840614 Comment: Off suboxone but unclear from prescriber if he is taking it or selling it, ? benefit as outpt. Pt told nurse 08/05 that he took heroin in the ED. Possible alternatives include methadone Consider further reductions in gabapentin, ? benefit. PRN hydroxyzine for anxiety (3) Constipation Current Visit: Yes Status: Acute Code(s): K59.00 - CONSTIPATION, UNSPECIFIED SNOMED Code(s): 80850264 Comment: Mag citrate x 1 ordered, also daily docusate and PEG. (4) Tobacco abuse Current Visit: Yes Status: Acute Code(s): Z72.0 - TOBACCO USE SNOMED Code( s): 965198813 Comment: Dx noted.
[2017-08-05] MEDS: hydrOXYzine HCL TAB* 25 MG PO PRN ×2 (09:25→18:54)
[2017-08-05] MEDS: Gabapentin CAP(*) 300 MG PO SCH ×3 (09:26→20:39)
--- NOTE | 2017-08-05 10:13 | PN ---
Progress Note - Progress Note Date of Service: 08/05/17 SOAP: Subjective: Pt lying comfortably in bed. Complains of pain in left shoulder. States pain medications not helping. Denies fever, chills, numbness or tingling. Objective: Dressing/drain clean, dry and intact. Draining blood only. Sensation intact to lite touch distally. 2+ radial pulse. Vital Signs: Temp Pulse Resp BP Pulse Ox 98.6 F 93 19 123/77 97 08/05/17 08:05 08/05/17 08:05 08/05/17 09:26 08/05/17 08:05 08/05/17 08:05 Laboratory Last Values WBC 6.8 10^3/ul (3.5-10.8) 08/05/17 07:21 RBC 4.39 10^6/ul (4.0-5.4) 08/05/17 07:21 Hgb 11.9 g/dl (14.0-18.0) L 08/05/17 07:21 Hct 34 % (42-52) L 08/05/17 07:21 MCV 78 fL (80-94) L 08/05/17 07:21 MCH 27 pg (27-31) 08/05/17 07:21 MCHC 35 g/dl (31-36) 08/05/17 07:21 RDW 14 % (10.5-15) 08/05/17 07:21 Plt Count 212 10^3/ul (150-450) 08/05/17 07:21 MPV 8 um3 (7.4-10.4) 08/05/17 07:21 Neut % (Auto) 67.2 % (38-83) 08/05/17 07:21 Lymph % (Auto) 22.9 % (25-47) L 08/05/17 07:21 [place] % (Auto) 6.8 % (1-9) 08/05/17 07:21 Eos % (Auto) 2.6 % (0-6) 08/05/17 07:21 Baso % (Auto) 0.5 % (0-2) 08/05/17 07:21 Absolute Neuts (auto) 4.6 10^3/ul (1.5-7.7) 08/05/17 07:21 Absolute Lymphs (auto) 1.6 10^3/ul (1.0-4.8) 08/05/17 07:21 Absolute Monos (auto) 0.5 10^3/ul (0-0.8) 08/05/17 07:21 Absolute Eos (auto) 0.2 10^3/ul (0-0.6) 08/05/17 07:21 Absolute Basos (auto) 0 10^3/ul (0-0.2) 08/05/17 07:21 Absolute Nucleated RBC 0.01 10^3/ul 08/05/17 07:21 Nucleated RBC % 0.1 08/05/17 07:21 ESR 26 mm/Hr (0-14) H 08/02/17 16:09 INR (Anticoag Therapy) 0.89 (0.77-1.02) 08/02/17 16:35 APTT 31.7 seconds (26.0-36.3) 08/02/17 16:35 Sodium 137 mmol/L (133-145) 08/05/17 07:21 Potassium 3.7 mmol/L (3.5-5.0) 08/05/17 07:21 Chloride 104 mmol/L (101-111) 08/05/17 07:21 Carbon Dioxide 29 mmol/L (22-32) 08/05/17 07:21 Anion Gap 4 mmol/L (2-11) 08/05/17 07:21 BUN 5 mg/dL (6-24) L 08/05/17 07:21 Creatinine 0.58 mg/dL (0.67-1.17) L 08/05/17 07:21 Est GFR ( Amer) 195.7 (>60) 08/05/17 07:21 Est GFR (Non-Af Amer) 152.2 (>60) 08/05/17 07:21 BUN/Creatinine Ratio 8.6 (8-20) 08/05/17 07:21 Glucose 173 mg/dL (70-100) H 08/05/17 07:21 Lactic Acid 0.8 mmol/L (0.5-2.0) 08/02/17 16:58 Calcium 8.4 mg/dL (8.6-10.3) L 08/05/17 07:21 Total Bilirubin 0.40 mg/dL (0.2-1.0) 08/02/17 16:09 AST 22 U/L (13-39) 08/02/17 16:09 ALT 15 U/L (7-52) 08/02/17 16:09 Alkaline Phosphatase 138 U/L (34-104) H 08/02/17 16:09 Total Creatine Kinase 80 U/L (10-223) 08/02/17 16:09 Troponin I 0.00 ng/mL (<0.04) 08/02/17 16:09 C-Reactive Protein 30.37 mg/L (< 5.00) H 08/02/17 16:09 Total Protein 7.3 g/dL (6.4-8.9) 08/02/17 16:09 Albumin 4.0 g/dL (3.2-5.2) 08/02/17 16:09 Globulin 3.3 g/dL (2-4) 08/02/17 16:09 Albumin/Globulin Ratio 1.2 (1-3) 08/02/17 16:09 Urine Color [place] 08/02/17 14:50 Urine Appearance Clear 08/02/17 14:50 Urine pH 5.0 (5-9) 08/02/17 14:50 Ur Specific [place] 1.036 (1.010-1.030) H 08/02/17 14:50 Urine Protein Negative (Negative) 08/02/17 14:50 Urine Ketones Negative (Negative) 08/02/17 14:50 Urine Blood Negative (Negative) 08/02/17 14:50 Urine Nitrate Negative (Negative) 08/02/17 14:50 Urine Bilirubin 1+ (Negative) 08/02/17 14:50 Urine Urobilinogen Positive (Negative) H 08/02/17 14:50 Ur Leukocyte Esterase Negative (Negative) 08/02/17 14:50 Urine Glucose Negative (Negative) 08/02/17 14:50 Urine Ascorbic Acid * (Negative) H 08/02/17 14:50 Urine Opiates Screen Presumptive positive (None Detect) H 08/02/17 20:55 Ur Barbiturates Screen None detected (None Detect) 08/02/17 20:55 Ur Phencyclidine Scrn None detected (None Detect) 08/02/17 20:55 Ur Amphetamines Screen Presumptive positive (None Detect) H 08/02/17 20:55 U Benzodiazepines Scrn Presumptive positive (None Detect) H 08/02/17 20:55 Urine Cocaine Screen None detected (None Detect) 08/02/17 20:55 U Cannabinoids Screen Presumptive positive (None Detect) H 08/02/17 20:55 Assessment: 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 Peng Dressing change 08/06/17 Pain control
[2017-08-05] MEDS: Docusate CAP* 100 MG PO PRN ×2 (10:46→20:39)
[2017-08-05] MEDS: oxyCODONE/Acetamin 5/325 MG* TAB PO PRN ×2 (10:46→17:23)
[2017-08-05] MEDS ORDERED: LORazepam TAB(*) 1 MG PO ONE (22:00)
[2017-08-05] MEDS ORDERED: LORazepam TAB(*) 1 MG ONE (22:04)
[2017-08-06] MEDS: ceFAZolin 2 GM PREMIX (*) 2 GM/50 ML BAG IVPB SCH ×3 (01:00→16:20)
[2017-08-06] MEDS: HYDROmorphone INJ* 2 MG/ML CARPUJECT SYRINGE IV SLOW PU PRN ×6 (01:00→19:55)
[2017-08-06] MEDS: oxyCODONE/Acetamin 5/325 MG* TAB PO PRN ×5 (01:00→19:54)
[2017-08-06] MEDS: Heparin VIAL(*) 5000 UNITS/ML VIAL (FIVE THOUSAND) SUBCUT SCH ×2 (05:04→15:44)
[2017-08-06] MEDS: Gabapentin CAP(*) 300 MG PO SCH ×3 (08:36→19:53)
[2017-08-06] MEDS: hydrOXYzine HCL TAB* 25 MG PO PRN ×2 (08:36→19:55)
--- NOTE | 2017-08-06 15:52 | PN ---
Subjective Date of Service: 08/06/17 Interval History: C/O numbness L foot, persistent since before admission. L shoulder pain gradually abating. Objective Active Medications: Acetaminophen (Tylenol Tab*) 650 mg PO Q4H PRN PRN Reason: FEVER/PAIN Docusate Sodium (Colace Cap*) 200 mg PO DAILY PRN PRN Reason: CONSTIPATION Last Admin: 08/05/17 20:39 Dose: 200 mg Gabapentin (Neurontin Cap(*)) 600 mg PO TID [facility] Last Admin: 08/06/17 08:36 Dose: 600 mg Heparin Sodium (Porcine) (Heparin Vial(*)) 5,000 units SUBCUT Q8HR [facility] Last Admin: 08/06/17 15:44 Dose: Not Given Hydromorphone HCl (Dilaudid Inj*) 0.5 mg IV SLOW PU Q2H PRN PRN Reason: PAIN Last Admin: 08/06/17 12:05 Dose: 0.5 mg Hydroxyzine HCl (Atarax Tab*) 25 mg PO Q4H PRN PRN Reason: ANXIETY Last Admin: 08/06/17 08:36 Dose: 25 mg Cefazolin Sodium/Dextrose (Kefzol 2 Gm Premix(*)) 2 gm in 50 mls @ 100 mls/hr IVPB 0100,0900,1700 [facility] Last Admin: 08/06/17 08:38 Dose: 100 mls/hr Ondansetron HCl (Zofran Inj*) 4 mg IV Q6H PRN PRN Reason: NAUSEA Last Admin: 08/03/17 06:00 Dose: 4 mg Oxycodone/Acetaminophen (Percocet 5/325 Tab*) 2 tab PO Q4H PRN PRN Reason: PAIN Last Admin: 08/06/17 12:04 Dose: 2 tab Polyethylene Glycol/Electrolytes (Miralax*) 17 gm PO DAILY PRN PRN Reason: CONSTIPATION Last Admin: 08/05/17 17:23 Dose: 17 gm Vital Signs - 8 hr 08/06/17 08/06/17 08/06/17 08:00 08:32 08:36 Respiratory 17 16 17 Rate O2 Sat by Pulse 98 Oximetry 08/06/17 08/06/17 08/06/17 08:42 12:04 12:05 Respiratory 17 16 16 Rate O2 Sat by Pulse Oximetry Oxygen Devices in Use Now: None Appearance: Alert, supine in bed. In good spirits. Looks comfortable. Eyes: No Scleral Icterus Extremities: No Edema, No Clubbing, Cyanosis, - - L foot looks nl, warm, color good. L shoulder bandaged. Neurological: Alert and Oriented x 3, - - L foot distal plantar surface is numb. Result Diagrams: 08/05/17 07:21 08/05/17 07:21 Additional Lab and Data: Lab Results 08/02/17 08/02/17 Range/Units 16:09 16:09 WBC 6.6 (3.5-10.8) 10^3/ul RBC 5.24 (4.0-5.4) 10^6/ul Hgb 14.3 (14.0-18.0) g/dl Hct 42 (42-52) % MCV 80 (80-94) fL MCH 27 (27-31) pg MCHC 34 (31-36) g/dl RDW 13 (10.5-15) % Plt Count 233 (150-450) 10^3/ul MPV 8 (7.4-10.4) um3 Neut % (Auto) 61.3 (38-83) % Lymph % (Auto) 27.4 (25-47) % [place] % (Auto) 7.8 (1-9) % Eos % (Auto) 2.2 (0-6) % Baso % (Auto) 1.3 (0-2) % Absolute Neuts (auto) 4.1 (1.5-7.7) 10^3/ul Absolute Lymphs (auto) 1.8 (1.0-4.8) 10^3/ul Absolute Monos (auto) 0.5 (0-0.8) 10^3/ul Absolute Eos (auto) 0.1 (0-0.6) 10^3/ul Absolute Basos (auto) 0.1 (0-0.2) 10^3/ul Absolute Nucleated RBC 0.01 10^3/ul Nucleated RBC % 0.2 ESR Pending Sodium 137 (133-145) mmol/L Potassium 3.9 (3.5-5.0) mmol/L Chloride 102 (101-111) mmol/L Carbon Dioxide 27 (22-32) mmol/L Anion Gap 8 (2-11) mmol/L BUN 10 (6-24) mg/dL Creatinine 0.67 (0.67-1.17) mg/dL Est GFR ( Amer) 165.7 (>60) Est GFR (Non-Af Amer) 128.9 (>60) BUN/Creatinine Ratio 14.9 (8-20) Glucose 98 (70-100) mg/dL Calcium 9.5 (8.6-10.3) mg/dL Total Bilirubin 0.40 (0.2-1.0) mg/dL AST 22 (13-39) U/L ALT 15 (7-52) U/L Alkaline Phosphatase 138 H (34-104) U/L Total Creatine Kinase 80 (10-223) U/L Troponin I 0.00 (<0.04) ng/mL C-Reactive Protein 30.37 H (< 5.00) mg/L Total Protein 7.3 (6.4-8.9) g/dL Albumin 4.0 (3.2-5.2) g/dL Globulin 3.3 (2-4) g/dL Albumin/Globulin Ratio 1.2 (1-3) Microbiology and Other Data: Microbiology 08/04/17 14:25 Gram Stain - Final Shoulder Left 08/04/17 14:25 Gram Stain - Final Wound - Shoulder Left Assess/Plan/Problems-Billing Assessment: 42 yo M polysubstance and IV drug abuse presents with left shoulder pain found with draining abscess and suspected osteomyeolitis with planned surgery 08/04 - Patient Problems (1) Osteomyelitis of shoulder, left Current Visit: Yes Status: Acute Code(s): M86.9 - OSTEOMYELITIS, UNSPECIFIED SNOMED Code(s): 94950403 Comment: S/P removal hardware 08/04/17 JOSE in shoulder C&S. Blood C&S NG x 2 day 2. Long course IV cefazolin, ? lifelong antibiotics. PICC requested ID and ortho consults appreciated (2) Opiate addiction Current Visit: Yes Status: Acute Code(s): F11.20 - OPIOID DEPENDENCE, UNCOMPLICATED SNOMED Code(s): 64675192 Comment: Off suboxone but unclear from prescriber if he is taking it or selling it, ? benefit as outpt. Pt told nurse 08/05 that he took heroin in the ED. Possible alternatives include methadone Consider further reductions in gabapentin, ? benefit. PRN hydroxyzine for anxiety (3) Constipation Current Visit: Yes Status: Acute Code(s): K59.00 - CONSTIPATION, UNSPECIFIED SNOMED Code(s): 85856158 Comment: Mag citrate worked well 08/06. Continue daily docusate and PEG. (4) Tobacco abuse Current Visit: Yes Status: Acute Code(s): Z72.0 - TOBACCO USE SNOMED Code( s): 144692625 Comment: Dx noted. (5) Numbness of left foot Current Visit: Yes Status: Acute Code(s): R20.8 - OTHER DISTURBANCES OF SKIN SENSATION SNOMED Code(s): 155954836 Comment: Could be related to attempt to inject meth and/or frostbite. I will discuss with a neurologist.
--- NOTE | 2017-08-06 15:53 | PN ---
Progress Note - Progress Note Date of Service: 08/06/17 SOAP: Subjective: Pt lying comfortably in bed. Notes less pain today. Denies F/C/N/T Objective: Dressing changed and drain pulled. Incision C/D/I. 2+ radial pulse. Vital Signs: Temp Pulse Resp BP Pulse Ox 98.1 F 93 16 130/82 98 08/06/17 07:15 08/06/17 07:15 08/06/17 12:05 08/06/17 07:15 08/06/17 08:00 Laboratory Last Values WBC 6.8 10^3/ul (3.5-10.8) 08/05/17 07:21 RBC 4.39 10^6/ul (4.0-5.4) 08/05/17 07:21 Hgb 11.9 g/dl (14.0-18.0) L 08/05/17 07:21 Hct 34 % (42-52) L 08/05/17 07:21 MCV 78 fL (80-94) L 08/05/17 07:21 MCH 27 pg (27-31) 08/05/17 07:21 MCHC 35 g/dl (31-36) 08/05/17 07:21 RDW 14 % (10.5-15) 08/05/17 07:21 Plt Count 212 10^3/ul (150-450) 08/05/17 07:21 MPV 8 um3 (7.4-10.4) 08/05/17 07:21 Neut % (Auto) 67.2 % (38-83) 08/05/17 07:21 Lymph % (Auto) 22.9 % (25-47) L 08/05/17 07:21 [place] % (Auto) 6.8 % (1-9) 08/05/17 07:21 Eos % (Auto) 2.6 % (0-6) 08/05/17 07:21 Baso % (Auto) 0.5 % (0-2) 08/05/17 07:21 Absolute Neuts (auto) 4.6 10^3/ul (1.5-7.7) 08/05/17 07:21 Absolute Lymphs (auto) 1.6 10^3/ul (1.0-4.8) 08/05/17 07:21 Absolute Monos (auto) 0.5 10^3/ul (0-0.8) 08/05/17 07:21 Absolute Eos (auto) 0.2 10^3/ul (0-0.6) 08/05/17 07:21 Absolute Basos (auto) 0 10^3/ul (0-0.2) 08/05/17 07:21 Absolute Nucleated RBC 0.01 10^3/ul 08/05/17 07:21 Nucleated RBC % 0.1 08/05/17 07:21 ESR 26 mm/Hr (0-14) H 08/02/17 16:09 INR (Anticoag Therapy) 0.89 (0.77-1.02) 08/02/17 16:35 APTT 31.7 seconds (26.0-36.3) 08/02/17 16:35 Sodium 137 mmol/L (133-145) 08/05/17 07:21 Potassium 3.7 mmol/L (3.5-5.0) 08/05/17 07:21 Chloride 104 mmol/L (101-111) 08/05/17 07:21 Carbon Dioxide 29 mmol/L (22-32) 08/05/17 07:21 Anion Gap 4 mmol/L (2-11) 08/05/17 07:21 BUN 5 mg/dL (6-24) L 08/05/17 07:21 Creatinine 0.58 mg/dL (0.67-1.17) L 08/05/17 07:21 Est GFR ( Amer) 195.7 (>60) 08/05/17 07:21 Est GFR (Non-Af Amer) 152.2 (>60) 08/05/17 07:21 BUN/Creatinine Ratio 8.6 (8-20) 08/05/17 07:21 Glucose 173 mg/dL (70-100) H 08/05/17 07:21 Lactic Acid 0.8 mmol/L (0.5-2.0) 08/02/17 16:58 Calcium 8.4 mg/dL (8.6-10.3) L 08/05/17 07:21 Total Bilirubin 0.40 mg/dL (0.2-1.0) 08/02/17 16:09 AST 22 U/L (13-39) 08/02/17 16:09 ALT 15 U/L (7-52) 08/02/17 16:09 Alkaline Phosphatase 138 U/L (34-104) H 08/02/17 16:09 Total Creatine Kinase 80 U/L (10-223) 08/02/17 16:09 Troponin I 0.00 ng/mL (<0.04) 08/02/17 16:09 C-Reactive Protein 30.37 mg/L (< 5.00) H 08/02/17 16:09 Total Protein 7.3 g/dL (6.4-8.9) 08/02/17 16:09 Albumin 4.0 g/dL (3.2-5.2) 08/02/17 16:09 Globulin 3.3 g/dL (2-4) 08/02/17 16:09 Albumin/Globulin Ratio 1.2 (1-3) 08/02/17 16:09 Urine Color [place] 08/02/17 14:50 Urine Appearance Clear 08/02/17 14:50 Urine pH 5.0 (5-9) 08/02/17 14:50 Ur Specific [place] 1.036 (1.010-1.030) H 08/02/17 14:50 Urine Protein Negative (Negative) 08/02/17 14:50 Urine Ketones Negative (Negative) 08/02/17 14:50 Urine Blood Negative (Negative) 08/02/17 14:50 Urine Nitrate Negative (Negative) 08/02/17 14:50 Urine Bilirubin 1+ (Negative) 08/02/17 14:50 Urine Urobilinogen Positive (Negative) H 08/02/17 14:50 Ur Leukocyte Esterase Negative (Negative) 08/02/17 14:50 Urine Glucose Negative (Negative) 08/02/17 14:50 Urine Ascorbic Acid * (Negative) H 08/02/17 14:50 Urine Opiates Screen Presumptive positive (None Detect) H 08/02/17 20:55 Ur Barbiturates Screen None detected (None Detect) 08/02/17 20:55 Ur Phencyclidine Scrn None detected (None Detect) 08/02/17 20:55 Ur Amphetamines Screen Presumptive positive (None Detect) H 08/02/17 20:55 U Benzodiazepines Scrn Presumptive positive (None Detect) H 08/02/17 20:55 Urine Cocaine Screen None detected (None Detect) 08/02/17 20:55 U Cannabinoids Screen Presumptive positive (None Detect) H 08/02/17 20:55 HIV 1&2 Antibody Nonreactive (Nonreactive) 08/05/17 07:21 Assessment: Left proximal humerus osteomyelitis I&D Left shoulder POD#3 Plan: IV abx per Dr. Peng pain control
[2017-08-07] MEDS: oxyCODONE/Acetamin 5/325 MG* TAB PO PRN ×5 (00:06→20:58)
[2017-08-07] MEDS: HYDROmorphone INJ* 2 MG/ML CARPUJECT SYRINGE IV SLOW PU PRN ×7 (00:07→20:57)
[2017-08-07] MEDS: hydrOXYzine HCL TAB* 25 MG PO PRN ×2 (00:07→04:23)
[2017-08-07] MEDS: ceFAZolin 2 GM PREMIX (*) 2 GM/50 ML BAG IVPB SCH ×3 (00:11→17:02)
[2017-08-07] MEDS: Heparin VIAL(*) 5000 UNITS/ML VIAL (FIVE THOUSAND) SUBCUT SCH ×4 (01:55→20:51)
[2017-08-07] MEDS: Gabapentin CAP(*) 300 MG PO SCH ×3 (08:43→20:49)
--- NOTE | 2017-08-07 10:52 | PN ---
Subjective Date of Service: 08/07/17 Interval History: C/O pain L foot, also still numb. Pt states he is undergoing opiate withdrawal. He declined my offer of clonidine. Objective Active Medications: Acetaminophen (Tylenol Tab*) 650 mg PO Q4H PRN PRN Reason: FEVER/PAIN Docusate Sodium (Colace Cap*) 200 mg PO DAILY PRN PRN Reason: CONSTIPATION Last Admin: 08/05/17 20:39 Dose: 200 mg Gabapentin (Neurontin Cap(*)) 600 mg PO TID [facility] Last Admin: 08/07/17 08:43 Dose: 600 mg Heparin Sodium (Porcine) (Heparin Vial(*)) 5,000 units SUBCUT Q8HR [facility] Last Admin: 08/07/17 05:42 Dose: Not Given Hydromorphone HCl (Dilaudid Inj*) 0.5 mg IV SLOW PU Q2H PRN PRN Reason: PAIN Last Admin: 08/07/17 08:44 Dose: 0.5 mg Hydroxyzine HCl (Atarax Tab*) 25 mg PO Q4H PRN PRN Reason: ANXIETY Last Admin: 08/07/17 04:23 Dose: 25 mg Cefazolin Sodium/Dextrose (Kefzol 2 Gm Premix(*)) 2 gm in 50 mls @ 100 mls/hr IVPB 0100,0900,1700 [facility] Last Admin: 08/07/17 09:12 Dose: 100 mls/hr Ondansetron HCl (Zofran Inj*) 4 mg IV Q6H PRN PRN Reason: NAUSEA Last Admin: 08/03/17 06:00 Dose: 4 mg Oxycodone/Acetaminophen (Percocet 5/325 Tab*) 2 tab PO Q4H PRN PRN Reason: PAIN Last Admin: 08/07/17 08:44 Dose: 2 tab Polyethylene Glycol/Electrolytes (Miralax*) 17 gm PO DAILY PRN PRN Reason: CONSTIPATION Last Admin: 08/05/17 17:23 Dose: 17 gm Vital Signs - 8 hr 08/07/17 08/07/17 08/07/17 02:51 04:22 05:38 Respiratory 18 18 18 Rate 08/07/17 08/07/17 08/07/17 06:30 08:43 08:44 Respiratory 18 17 17 Rate Oxygen Devices in Use Now: None Appearance: Alert, supine in bed. In fair spirits. Looks comfortable. Result Diagrams: 08/05/17 07:21 08/05/17 07:21 Additional Lab and Data: Lab Results 08/02/17 08/02/17 Range/Units 16:09 16:09 WBC 6.6 (3.5-10.8) 10^3/ul RBC 5.24 (4.0-5.4) 10^6/ul Hgb 14.3 (14.0-18.0) g/dl Hct 42 (42-52) % MCV 80 (80-94) fL MCH 27 (27-31) pg MCHC 34 (31-36) g/dl RDW 13 (10.5-15) % Plt Count 233 (150-450) 10^3/ul MPV 8 (7.4-10.4) um3 Neut % (Auto) 61.3 (38-83) % Lymph % (Auto) 27.4 (25-47) % [place] % (Auto) 7.8 (1-9) % Eos % (Auto) 2.2 (0-6) % Baso % (Auto) 1.3 (0-2) % Absolute Neuts (auto) 4.1 (1.5-7.7) 10^3/ul Absolute Lymphs (auto) 1.8 (1.0-4.8) 10^3/ul Absolute Monos (auto) 0.5 (0-0.8) 10^3/ul Absolute Eos (auto) 0.1 (0-0.6) 10^3/ul Absolute Basos (auto) 0.1 (0-0.2) 10^3/ul Absolute Nucleated RBC 0.01 10^3/ul Nucleated RBC % 0.2 ESR Pending Sodium 137 (133-145) mmol/L Potassium 3.9 (3.5-5.0) mmol/L Chloride 102 (101-111) mmol/L Carbon Dioxide 27 (22-32) mmol/L Anion Gap 8 (2-11) mmol/L BUN 10 (6-24) mg/dL Creatinine 0.67 (0.67-1.17) mg/dL Est GFR ( Amer) 165.7 (>60) Est GFR (Non-Af Amer) 128.9 (>60) BUN/Creatinine Ratio 14.9 (8-20) Glucose 98 (70-100) mg/dL Calcium 9.5 (8.6-10.3) mg/dL Total Bilirubin 0.40 (0.2-1.0) mg/dL AST 22 (13-39) U/L ALT 15 (7-52) U/L Alkaline Phosphatase 138 H (34-104) U/L Total Creatine Kinase 80 (10-223) U/L Troponin I 0.00 (<0.04) ng/mL C-Reactive Protein 30.37 H (< 5.00) mg/L Total Protein 7.3 (6.4-8.9) g/dL Albumin 4.0 (3.2-5.2) g/dL Globulin 3.3 (2-4) g/dL Albumin/Globulin Ratio 1.2 (1-3) Microbiology and Other Data: Microbiology 08/04/17 14:25 Gram Stain - Final Shoulder Left 08/04/17 14:25 Gram Stain - Final Wound - Shoulder Left Assess/Plan/Problems-Billing Assessment: 42 yo M polysubstance and IV drug abuse presents with left shoulder pain found with draining abscess and suspected osteomyeolitis with planned surgery 08/04 - Patient Problems (1) Osteomyelitis of shoulder, left Current Visit: Yes Status: Acute Code(s): M86.9 - OSTEOMYELITIS, UNSPECIFIED SNOMED Code(s): 43567018 Comment: S/P removal hardware 08/04/17 JOSE in shoulder C&S. Blood C&S NG x 2 day 2. Long course IV cefazolin, ? lifelong antibiotics. PICC requested ID and ortho consults appreciated (2) Opiate addiction Current Visit: Yes Status: Acute Code(s): F11.20 - OPIOID DEPENDENCE, UNCOMPLICATED SNOMED Code(s): 27275328 Comment: Off suboxone but unclear from prescriber if he is taking it or selling it, ? benefit as outpt. Pt told nurse 08/05 that he took heroin in the ED. Possible alternatives include methadone Consider further reductions in gabapentin, ? benefit. PRN hydroxyzine for anxiety (3) Constipation Current Visit: Yes Status: Acute Code(s): K59.00 - CONSTIPATION, UNSPECIFIED SNOMED Code(s): 22795874 Comment: Mag citrate worked well 08/06. Continue daily docusate and PEG. (4) Tobacco abuse Current Visit: Yes Status: Acute Code(s): Z72.0 - TOBACCO USE SNOMED Code( s): 120097199 Comment: Dx noted. (5) Numbness of left foot Current Visit: Yes Status: Acute Code(s): R20.8 - OTHER DISTURBANCES OF SKIN SENSATION SNOMED Code(s): 726805486 Comment: Could be related to attempt to inject meth and/or frostbite. I will discuss with a neurologist.
[2017-08-07] MEDS ORDERED: hydrOXYzine HCL TAB* 25 MG PO ONE (15:22)
[2017-08-07] MEDS: Methylphenidate ER 27 MG TAB PO SCH (20:50)
[2017-08-08] MEDS: HYDROmorphone INJ* 2 MG/ML CARPUJECT SYRINGE IV SLOW PU PRN ×7 (00:27→21:29)
[2017-08-08] MEDS: ceFAZolin 2 GM PREMIX (*) 2 GM/50 ML BAG IVPB SCH ×3 (00:30→17:19)
[2017-08-08] MEDS: oxyCODONE/Acetamin 5/325 MG* TAB PO PRN ×6 (00:58→21:30)
[2017-08-08] MEDS: Heparin VIAL(*) 5000 UNITS/ML VIAL (FIVE THOUSAND) SUBCUT SCH ×3 (05:02→21:31)
[2017-08-08] MEDS: Gabapentin CAP(*) 300 MG PO SCH ×3 (08:45→21:29)
[2017-08-08] MEDS: hydrOXYzine HCL TAB* 25 MG PO PRN (08:46)
[2017-08-08] MEDS: Methylphenidate ER 27 MG TAB PO SCH ×2 (08:46→21:31)
--- NOTE | 2017-08-08 11:10 | PN ---
Progress Note - Progress Note Date of Service: 08/08/17 SOAP: Subjective: pt seen lying comfortably in bed. Notes less pain today, different from before surgery. States pain is only superficial. Denies F/C/N/T Objective: Dressing changed.. Incision C/D/I, with open area in distal portion of wound. No active drainage today. 2+ radial pulse. Vital Signs: Vital Signs Temp 98.2 F 08/08/17 07:24 Pulse 68 08/08/17 07:24 Resp 16 08/08/17 09:37 BP 104/58 08/08/17 07:24 Pulse Ox 97 08/08/17 09:19 Intake & Output 08/07/17 08/08/17 08/08/17 18:59 06:59 18:59 Intake Total 1438 120.5 Output Total 350 1050 Balance 1088 -929.5 Intake: IV Fluids 120.5 NS (0.9%) 20 cefazolin 100.5 IVPB 58 cefazolin 58 Oral 1380 0 Output: Urine 350 1050 Other: # Bowel Movements 0 0 Assessment: Left proximal humerus osteomyelitis S/P I&D Left shoulder Plan: IV abx per Dr. Peng dressing changed today. pain control to continue
[2017-08-08] MEDS ORDERED: Simethicone TAB* 80 MG TAB.CHEW PO PRN (11:50)
--- NOTE | 2017-08-08 16:48 | PN ---
Subjective Date of Service: 08/08/17 Interval History: Feels better on methylphenidate. Pain control OK, although L arm ROM very limited. Objective Active Medications: Acetaminophen (Tylenol Tab*) 650 mg PO Q4H PRN PRN Reason: FEVER/PAIN Docusate Sodium (Colace Cap*) 200 mg PO DAILY PRN PRN Reason: CONSTIPATION Last Admin: 08/05/17 20:39 Dose: 200 mg Gabapentin (Neurontin Cap(*)) 600 mg PO TID [facility] Last Admin: 08/08/17 13:08 Dose: 600 mg Heparin Sodium (Porcine) (Heparin Vial(*)) 5,000 units SUBCUT Q8HR [facility] Last Admin: 08/08/17 13:08 Dose: Not Given Hydromorphone HCl (Dilaudid Inj*) 0.5 mg IV SLOW PU Q3H PRN PRN Reason: PAIN Last Admin: 08/08/17 15:16 Dose: 0.5 mg Hydroxyzine HCl (Atarax Tab*) 25 mg PO Q4H PRN PRN Reason: ANXIETY Last Admin: 08/08/17 08:46 Dose: 25 mg Cefazolin Sodium/Dextrose (Kefzol 2 Gm Premix(*)) 2 gm in 50 mls @ 100 mls/hr IVPB 0100,0900,1700 [facility] Last Admin: 08/08/17 08:45 Dose: 100 mls/hr Methylphenidate HCl (Concerta) 27 mg PO BID [facility] Last Admin: 08/08/17 08:46 Dose: 27 mg Ondansetron HCl (Zofran Inj*) 4 mg IV Q6H PRN PRN Reason: NAUSEA Last Admin: 08/03/17 06:00 Dose: 4 mg Oxycodone/Acetaminophen (Percocet 5/325 Tab*) 2 tab PO Q4H PRN PRN Reason: PAIN Last Admin: 08/08/17 13:30 Dose: 2 tab Polyethylene Glycol/Electrolytes (Miralax*) 17 gm PO DAILY PRN PRN Reason: CONSTIPATION Last Admin: 08/05/17 17:23 Dose: 17 gm Simethicone (Mylicon Tab*) 80 mg PO Q6H PRN PRN Reason: DYSPEPSIA Last Admin: 08/08/17 13:07 Dose: 80 mg Vital Signs - 8 hr 08/08/17 08/08/17 08/08/17 08:45 09:16 09:19 Temperature Pulse Rate Respiratory 16 16 Rate Blood Pressure (mmHg) O2 Sat by Pulse 97 97 Oximetry 08/08/17 08/08/17 08/08/17 09:37 11:38 12:03 Temperature Pulse Rate Respiratory 16 16 16 Rate Blood Pressure (mmHg) O2 Sat by Pulse Oximetry 08/08/17 08/08/17 08/08/17 13:08 13:13 13:30 Temperature 97.2 F Pulse Rate 82 Respiratory 16 16 16 Rate Blood Pressure 127/70 (mmHg) O2 Sat by Pulse 98 Oximetry 08/08/17 08/08/17 08/08/17 13:39 15:16 16:36 Temperature Pulse Rate Respiratory 16 16 Rate Blood Pressure (mmHg) O2 Sat by Pulse 98 Oximetry Oxygen Devices in Use Now: None Appearance: Alert, supine in bed. In good spirits. Looks comfortable. Extremities: No Edema, No Clubbing, Cyanosis, - Skin: No Rash or Ulcers, No Nodules or Sclerosis, - Neurological: Alert and Oriented x 3, NL Sensation Result Diagrams: 08/05/17 07:21 08/05/17 07:21 Additional Lab and Data: Lab Results 08/02/17 08/02/17 Range/Units 16:09 16:09 WBC 6.6 (3.5-10.8) 10^3/ul RBC 5.24 (4.0-5.4) 10^6/ul Hgb 14.3 (14.0-18.0) g/dl Hct 42 (42-52) % MCV 80 (80-94) fL MCH 27 (27-31) pg MCHC 34 (31-36) g/dl RDW 13 (10.5-15) % Plt Count 233 (150-450) 10^3/ul MPV 8 (7.4-10.4) um3 Neut % (Auto) 61.3 (38-83) % Lymph % (Auto) 27.4 (25-47) % [place] % (Auto) 7.8 (1-9) % Eos % (Auto) 2.2 (0-6) % Baso % (Auto) 1.3 (0-2) % Absolute Neuts (auto) 4.1 (1.5-7.7) 10^3/ul Absolute Lymphs (auto) 1.8 (1.0-4.8) 10^3/ul Absolute Monos (auto) 0.5 (0-0.8) 10^3/ul Absolute Eos (auto) 0.1 (0-0.6) 10^3/ul Absolute Basos (auto) 0.1 (0-0.2) 10^3/ul Absolute Nucleated RBC 0.01 10^3/ul Nucleated RBC % 0.2 ESR Pending Sodium 137 (133-145) mmol/L Potassium 3.9 (3.5-5.0) mmol/L Chloride 102 (101-111) mmol/L Carbon Dioxide 27 (22-32) mmol/L Anion Gap 8 (2-11) mmol/L BUN 10 (6-24) mg/dL Creatinine 0.67 (0.67-1.17) mg/dL Est GFR ( Amer) 165.7 (>60) Est GFR (Non-Af Amer) 128.9 (>60) BUN/Creatinine Ratio 14.9 (8-20) Glucose 98 (70-100) mg/dL Calcium 9.5 (8.6-10.3) mg/dL Total Bilirubin 0.40 (0.2-1.0) mg/dL AST 22 (13-39) U/L ALT 15 (7-52) U/L Alkaline Phosphatase 138 H (34-104) U/L Total Creatine Kinase 80 (10-223) U/L Troponin I 0.00 (<0.04) ng/mL C-Reactive Protein 30.37 H (< 5.00) mg/L Total Protein 7.3 (6.4-8.9) g/dL Albumin 4.0 (3.2-5.2) g/dL Globulin 3.3 (2-4) g/dL Albumin/Globulin Ratio 1.2 (1-3) Microbiology and Other Data: Microbiology 08/04/17 14:25 Gram Stain - Final Shoulder Left 08/04/17 14:25 Gram Stain - Final Wound - Shoulder Left Assess/Plan/Problems-Billing Assessment: 42 yo M polysubstance and IV drug abuse presents with left shoulder pain found with draining abscess and suspected osteomyeolitis with planned surgery 08/04 - Patient Problems (1) Osteomyelitis of shoulder, left Current Visit: Yes Status: Acute Code(s): M86.9 - OSTEOMYELITIS, UNSPECIFIED SNOMED Code(s): 99658887 Comment: S/P removal hardware 08/04/17 JOSE in shoulder C&S. Blood C&S NG x 2 day 2. Long course IV cefazolin, ? lifelong antibiotics. PICC in place. ID and ortho consults appreciated (2) Opiate addiction Current Visit: Yes Status: Acute Code(s): F11.20 - OPIOID DEPENDENCE, UNCOMPLICATED SNOMED Code(s): 74306747 Comment: Off suboxone but unclear from prescriber if he is taking it or selling it, ? benefit as outpt. Pt told nurse 08/05 that he took heroin in the ED. Possible alternatives include methadone Consider further reductions in gabapentin, ? benefit. PRN hydroxyzine for anxiety (3) Constipation Current Visit: Yes Status: Acute Code(s): K59.00 - CONSTIPATION, UNSPECIFIED SNOMED Code(s): 32115966 Comment: Mag citrate worked well 08/06. Continue daily docusate and PEG. (4) Tobacco abuse Current Visit: Yes Status: Acute Code(s): Z72.0 - TOBACCO USE SNOMED Code( s): 664582598 Comment: Dx noted. (5) Numbness of left foot Current Visit: Yes Status: Acute Code(s): R20.8 - OTHER DISTURBANCES OF SKIN SENSATION SNOMED Code(s): 116816603 Comment: Could be related to attempt to inject meth and/or frostbite. I will discuss with a neurologist.
[2017-08-09] MEDS: HYDROmorphone INJ* 2 MG/ML CARPUJECT SYRINGE IV SLOW PU PRN ×8 (00:46→22:43)
[2017-08-09] MEDS: ceFAZolin 2 GM PREMIX (*) 2 GM/50 ML BAG IVPB SCH ×3 (01:48→16:34)
[2017-08-09] MEDS: oxyCODONE/Acetamin 5/325 MG* TAB PO PRN ×6 (01:48→23:20)
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
[2017-08-09] MEDS: Heparin VIAL(*) 5000 UNITS/ML VIAL (FIVE THOUSAND) SUBCUT SCH ×3 (05:21→22:10)
[2017-08-09] MEDS: Methylphenidate ER 27 MG TAB PO SCH ×2 (09:23→21:14)
[2017-08-09] MEDS: Gabapentin CAP(*) 300 MG PO SCH ×3 (09:23→21:13)
--- NOTE | 2017-08-09 11:52 | PN ---
Subjective Date of Service: 08/09/17 Interval History: Still has numbness/tingling/pain L foot. Otherwise pain control is good. nO NEW C/O. Objective Active Medications: Acetaminophen (Tylenol Tab*) 650 mg PO Q4H PRN PRN Reason: FEVER/PAIN Docusate Sodium (Colace Cap*) 200 mg PO DAILY PRN PRN Reason: CONSTIPATION Last Admin: 08/05/17 20:39 Dose: 200 mg Gabapentin (Neurontin Cap(*)) 600 mg PO TID [facility] Last Admin: 08/09/17 09:23 Dose: 600 mg Heparin Sodium (Porcine) (Heparin Vial(*)) 5,000 units SUBCUT Q8HR [facility] Last Admin: 08/09/17 05:21 Dose: Not Given Hydromorphone HCl (Dilaudid Inj*) 0.5 mg IV SLOW PU Q3H PRN PRN Reason: PAIN Last Admin: 08/09/17 10:26 Dose: 0.5 mg Hydroxyzine HCl (Atarax Tab*) 25 mg PO Q4H PRN PRN Reason: ANXIETY Last Admin: 08/08/17 08:46 Dose: 25 mg Cefazolin Sodium/Dextrose (Kefzol 2 Gm Premix(*)) 2 gm in 50 mls @ 100 mls/hr IVPB 0100,0900,1700 [facility] Last Admin: 08/09/17 09:22 Dose: 100 mls/hr Methylphenidate HCl (Concerta) 27 mg PO BID [facility] Last Admin: 08/09/17 09:23 Dose: 27 mg Ondansetron HCl (Zofran Inj*) 4 mg IV Q6H PRN PRN Reason: NAUSEA Last Admin: 08/03/17 06:00 Dose: 4 mg Oxycodone/Acetaminophen (Percocet 5/325 Tab*) 2 tab PO Q4H PRN PRN Reason: PAIN Last Admin: 08/09/17 10:25 Dose: 2 tab Polyethylene Glycol/Electrolytes (Miralax*) 17 gm PO DAILY PRN PRN Reason: CONSTIPATION Last Admin: 08/05/17 17:23 Dose: 17 gm Simethicone (Mylicon Tab*) 80 mg PO Q6H PRN PRN Reason: DYSPEPSIA Last Admin: 08/08/17 13:07 Dose: 80 mg Vital Signs - 8 hr 08/09/17 08/09/17 08/09/17 04:09 04:56 06:00 Temperature Pulse Rate Respiratory 16 16 16 Rate Blood Pressure (mmHg) O2 Sat by Pulse Oximetry 08/09/17 08/09/17 08/09/17 06:10 07:13 07:26 Temperature 97.5 F Pulse Rate 74 Respiratory 16 18 16 Rate Blood Pressure 108/52 (mmHg) O2 Sat by Pulse 98 Oximetry 08/09/17 08/09/17 08/09/17 07:31 09:22 09:23 Temperature Pulse Rate Respiratory 16 16 16 Rate Blood Pressure (mmHg) O2 Sat by Pulse 98 Oximetry 08/09/17 08/09/17 10:25 10:26 Temperature Pulse Rate Respiratory 18 16 Rate Blood Pressure (mmHg) O2 Sat by Pulse Oximetry Oxygen Devices in Use Now: None Appearance: Alert, partly up in bed. In good spirits. Looks comfortable. Extremities: No Edema, No Clubbing, Cyanosis, - - L foot DP and PT pulses both 2 +. Skin: No Rash or Ulcers, No Nodules or Sclerosis, - Neurological: Alert and Oriented x 3, NL Sensation Result Diagrams: 08/05/17 07:21 08/05/17 07:21 Additional Lab and Data: Lab Results 08/02/17 08/02/17 Range/Units 16:09 16:09 WBC 6.6 (3.5-10.8) 10^3/ul RBC 5.24 (4.0-5.4) 10^6/ul Hgb 14.3 (14.0-18.0) g/dl Hct 42 (42-52) % MCV 80 (80-94) fL MCH 27 (27-31) pg MCHC 34 (31-36) g/dl RDW 13 (10.5-15) % Plt Count 233 (150-450) 10^3/ul MPV 8 (7.4-10.4) um3 Neut % (Auto) 61.3 (38-83) % Lymph % (Auto) 27.4 (25-47) % [place] % (Auto) 7.8 (1-9) % Eos % (Auto) 2.2 (0-6) % Baso % (Auto) 1.3 (0-2) % Absolute Neuts (auto) 4.1 (1.5-7.7) 10^3/ul Absolute Lymphs (auto) 1.8 (1.0-4.8) 10^3/ul Absolute Monos (auto) 0.5 (0-0.8) 10^3/ul Absolute Eos (auto) 0.1 (0-0.6) 10^3/ul Absolute Basos (auto) 0.1 (0-0.2) 10^3/ul Absolute Nucleated RBC 0.01 10^3/ul Nucleated RBC % 0.2 ESR Pending Sodium 137 (133-145) mmol/L Potassium 3.9 (3.5-5.0) mmol/L Chloride 102 (101-111) mmol/L Carbon Dioxide 27 (22-32) mmol/L Anion Gap 8 (2-11) mmol/L BUN 10 (6-24) mg/dL Creatinine 0.67 (0.67-1.17) mg/dL Est GFR ( Amer) 165.7 (>60) Est GFR (Non-Af Amer) 128.9 (>60) BUN/Creatinine Ratio 14.9 (8-20) Glucose 98 (70-100) mg/dL Calcium 9.5 (8.6-10.3) mg/dL Total Bilirubin 0.40 (0.2-1.0) mg/dL AST 22 (13-39) U/L ALT 15 (7-52) U/L Alkaline Phosphatase 138 H (34-104) U/L Total Creatine Kinase 80 (10-223) U/L Troponin I 0.00 (<0.04) ng/mL C-Reactive Protein 30.37 H (< 5.00) mg/L Total Protein 7.3 (6.4-8.9) g/dL Albumin 4.0 (3.2-5.2) g/dL Globulin 3.3 (2-4) g/dL Albumin/Globulin Ratio 1.2 (1-3) Microbiology and Other Data: Microbiology 08/04/17 14:25 Gram Stain - Final Shoulder Left 08/04/17 14:25 Gram Stain - Final Wound - Shoulder Left Assess/Plan/Problems-Billing Assessment: 42 yo M polysubstance and IV drug abuse presents with left shoulder pain found with draining abscess and suspected osteomyeolitis with planned surgery 08/04 - Patient Problems (1) Osteomyelitis of shoulder, left Current Visit: Yes Status: Acute Code(s): M86.9 - OSTEOMYELITIS, UNSPECIFIED SNOMED Code(s): 04294215 Comment: S/P removal hardware 08/04/17 JOSE in shoulder C&S. Blood C&S NG x 2 day 2. Long course IV cefazolin, ? lifelong antibiotics. PICC in place. ID and ortho consults appreciated (2) Opiate addiction Current Visit: Yes Status: Acute Code(s): F11.20 - OPIOID DEPENDENCE, UNCOMPLICATED SNOMED Code(s): 47333324 Comment: Off suboxone but unclear from prescriber if he is taking it or selling it, ? benefit as outpt. Pt told nurse 08/05 that he took heroin in the ED. Possible alternatives include methadone Consider further reductions in gabapentin, ? benefit. PRN hydroxyzine for anxiety (3) Constipation Current Visit: Yes Status: Acute Code(s): K59.00 - CONSTIPATION, UNSPECIFIED SNOMED Code(s): 24061918 Comment: Mag citrate worked well 08/06. Continue daily docusate and PEG. (4) Tobacco abuse Current Visit: Yes Status: Acute Code(s): Z72.0 - TOBACCO USE SNOMED Code( s): 817105731 Comment: Dx noted. (5) Numbness of left foot Current Visit: Yes Status: Acute Code(s): R20.8 - OTHER DISTURBANCES OF SKIN SENSATION SNOMED Code(s): 939545719 Comment: Could be related to attempt to inject meth and/or frostbite. Dr. Nelson will consult.
--- NOTE | 2017-08-09 16:26 | PN ---
Progress Note - Progress Note Date of Service: 08/09/17 SOAP: Subjective: CC: left shoulder infection HPI: 42 year old man with L shoulder sinus tract and chronic shoulder pain, past rotator cuff repair, recent I&D at an OSH. Admitted with purulent drainage from tract and worsening pain. No fever, rash, or diarrhea. Had I&D. No pain at surgical site. No fever, rash, or diarrhea. Objective: [] Vital Signs Temp 36.5 C 08/09/17 11:32 Pulse 76 08/09/17 11:32 Resp 18 08/09/17 14:34 BP 113/61 08/09/17 11:32 Pulse Ox 98 08/09/17 11:32 Intake & Output 08/08/17 08/09/17 08/09/17 18:59 06:59 18:59 Intake Total 390 1030 1330 Output Total 650 400 Balance -260 1030 930 Intake: IVPB 50 50 50 cefazolin 50 50 50 Oral [phone] Output: Urine 650 400 Other: # Bowel Movements 0 Gen:awake, no distress HEENT:PERRL, MMM Heart:RRR no murmur Lungs:CTA BL Abd:+BS NTND soft Skin: no rash MSK: L shoulder healed anterior incision w 5 mm wound and mild erythema Microbiology 08/04/17 14:25 Wound - Shoulder Left Anaerobic Culture - Final 08/04/17 14:25 Wound - Shoulder Left Anaerobic Culture - Final 08/04/17 14:25 Wound - Shoulder Left Gram Stain - Final 08/04/17 14:25 Wound - Shoulder Left Wound Culture - Final 08/02/17 16:35 Blood Venous Aerobic Blood Culture - Final No Growth Day 5 08/02/17 16:35 Blood Venous Anaerobic Blood Culture - Final No Growth Day 5 08/02/17 16:09 Blood Venous Aerobic Blood Culture - Final No Growth Day 5 08/02/17 16:09 Blood Venous Anaerobic Blood Culture - Final No Growth Day 5 08/04/17 14:25 Shoulder Left Gram Stain - Final 08/04/17 14:25 Shoulder Left Wound Culture - Final Staphylococcus Aureus 08/02/17 16:37 Shoulder Left Skin and Soft Tissue MRSA/MSSA (PCR - Final Mrsa Negative S.aureus Positive 08/02/17 16:37 Shoulder Left Gram Stain - Final 08/02/17 16:37 Shoulder Left Wound Culture - Final Staphylococcus Aureus Assessment: 1. MSSA chronic osteomyelitis, and orthopedic hardware infection; left proximal humerus 2. 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 left shoulder pain 4. HCV Plan: 1. continue ancef 2 gm IV Q8 hrs; day 01/08 then long course PO antibiotics. Will add rifampin 600 daily, weekly CBC, CMP, CRP. 35 minutes floor time >50% counseling regarding antibiotic plans.
--- NOTE | 2017-08-09 18:02 | PN ---
Progress Note - Progress Note Date of Service: 08/09/17 SOAP: Subjective: 42 y/o male with 1 yr history of L shoulder sinus tract and pain, treated with I &D by Dr. Driscoll on 08/04/17. Patient seen lying comfortably in bed. Pain well controlled unless moves arm. Denies fevers, chills, nausea, vomiting, numbness, tingling. Bowel movements reported as normal for patient, last 08/07. Objective: General: 42 y/o male laying comfortable in bed in NAD. A&Ox3. Normal mood/ affect. MSK: LUE: Dressing removed, some serosanguineous drainage noted on dressing without odor. No active drainage from incision site. Incision clean, dry, intact with loose sutures and open portion at distal incision. Pain with passive movement on shoulder. Able to move fingers, wrist, elbow without pain. 2 + radial pulse. Sensation grossly intact distal to elbow. Vital Signs Temp 98.0 F 08/09/17 15:28 Pulse 93 08/09/17 15:28 Resp 16 08/09/17 17:34 BP 119/50 08/09/17 15:28 Pulse Ox 99 08/09/17 15:28 Intake & Output 08/08/17 08/09/17 08/09/17 18:59 06:59 18:59 Intake Total 390 1030 1330 Output Total 650 400 Balance -260 1030 930 Intake: IVPB 50 50 50 cefazolin 50 50 50 Oral [phone] Output: Urine 650 400 Other: # Bowel Movements 0 No new labs in last 24 hours. Assessment: Left proximal humerus osteomylitis. S/P I&D 08/[address] Lorenzo. Plan: Left proximal humerus osteomylitis - Per ID: IV ancef 2 gm IV Q8 hrs; day 01/08 then long course PO antibiotics. Rifampin 600 daily, weekly CBC, CMP, CRP. - Dressing change today - Continue aggressive pain control Constipation: - Continue stool regiment per hospitalist
[2017-08-10] MEDS: ceFAZolin 2 GM PREMIX (*) 2 GM/50 ML BAG IVPB SCH ×3 (01:54→16:57)
[2017-08-10] MEDS: HYDROmorphone INJ* 2 MG/ML CARPUJECT SYRINGE IV SLOW PU PRN ×7 (01:58→21:03)
[2017-08-10] MEDS: oxyCODONE/Acetamin 5/325 MG* TAB PO PRN ×5 (03:46→22:43)
[2017-08-10] MEDS: Heparin VIAL(*) 5000 UNITS/ML VIAL (FIVE THOUSAND) SUBCUT SCH ×3 (05:49→21:05)
[2017-08-10] MEDS: Gabapentin CAP(*) 300 MG PO SCH ×3 (08:14→21:04)
[2017-08-10] MEDS: Methylphenidate ER 27 MG TAB PO SCH ×2 (08:15→21:04)
[2017-08-10] MEDS: RiFAMPin CAP* 300 MG CAP PO SCH (08:15)
--- NOTE | 2017-08-10 10:54 | PN ---
Progress Note - Progress Note Date of Service: 08/10/17 SOAP: Subjective: []Patient seen at bedside. His pain is currently well controlled. He denies any fever, chills, chest pain or shortness of breath. Patient states he is having some withdrawal from suboxone but is tolerating it well. Objective: Vital Signs Temp 98.0 F 08/10/17 07:21 Pulse 82 08/10/17 07:21 Resp 18 08/10/17 10:04 BP 115/63 08/10/17 07:21 Pulse Ox 100 08/10/17 08:00 Intake & Output 08/09/17 08/10/17 08/10/17 18:59 06:59 18:59 Intake Total 1330 620 Output Total 400 900 Balance 930 -280 Intake: IVPB 50 50 cefazolin 50 50 Oral 1280 570 Output: Urine 400 900 Other: Estimated Void Medium # Bowel Movements 0 # Voids 1 Laboratory Last Values WBC 6.8 10^3/ul (3.5-10.8) 08/05/17 07:21 RBC 4.39 10^6/ul (4.0-5.4) 08/05/17 07:21 Hgb 11.9 g/dl (14.0-18.0) L 08/05/17 07:21 Hct 34 % (42-52) L 08/05/17 07:21 MCV 78 fL (80-94) L 08/05/17 07:21 MCH 27 pg (27-31) 08/05/17 07:21 MCHC 35 g/dl (31-36) 08/05/17 07:21 RDW 14 % (10.5-15) 08/05/17 07:21 Plt Count 212 10^3/ul (150-450) 08/05/17 07:21 MPV 8 um3 (7.4-10.4) 08/05/17 07:21 Neut % (Auto) 67.2 % (38-83) 08/05/17 07:21 Lymph % (Auto) 22.9 % (25-47) L 08/05/17 07:21 [place] % (Auto) 6.8 % (1-9) 08/05/17 07:21 Eos % (Auto) 2.6 % (0-6) 08/05/17 07:21 Baso % (Auto) 0.5 % (0-2) 08/05/17 07:21 Absolute Neuts (auto) 4.6 10^3/ul (1.5-7.7) 08/05/17 07:21 Absolute Lymphs (auto) 1.6 10^3/ul (1.0-4.8) 08/05/17 07:21 Absolute Monos (auto) 0.5 10^3/ul (0-0.8) 08/05/17 07:21 Absolute Eos (auto) 0.2 10^3/ul (0-0.6) 08/05/17 07:21 Absolute Basos (auto) 0 10^3/ul (0-0.2) 08/05/17 07:21 Absolute Nucleated RBC 0.01 10^3/ul 08/05/17 07:21 Nucleated RBC % 0.1 08/05/17 07:21 ESR 26 mm/Hr (0-14) H 08/02/17 16:09 INR (Anticoag Therapy) 0.89 (0.77-1.02) 08/02/17 16:35 APTT 31.7 seconds (26.0-36.3) 08/02/17 16:35 Sodium 137 mmol/L (133-145) 08/05/17 07:21 Potassium 3.7 mmol/L (3.5-5.0) 08/05/17 07:21 Chloride 104 mmol/L (101-111) 08/05/17 07:21 Carbon Dioxide 29 mmol/L (22-32) 08/05/17 07:21 Anion Gap 4 mmol/L (2-11) 08/05/17 07:21 BUN 5 mg/dL (6-24) L 08/05/17 07:21 Creatinine 0.58 mg/dL (0.67-1.17) L 08/05/17 07:21 Est GFR ( Amer) 195.7 (>60) 08/05/17 07:21 Est GFR (Non-Af Amer) 152.2 (>60) 08/05/17 07:21 BUN/Creatinine Ratio 8.6 (8-20) 08/05/17 07:21 Glucose 173 mg/dL (70-100) H 08/05/17 07:21 Lactic Acid 0.8 mmol/L (0.5-2.0) 08/02/17 16:58 Calcium 8.4 mg/dL (8.6-10.3) L 08/05/17 07:21 Total Bilirubin 0.40 mg/dL (0.2-1.0) 08/02/17 16:09 AST 22 U/L (13-39) 08/02/17 16:09 ALT 15 U/L (7-52) 08/02/17 16:09 Alkaline Phosphatase 138 U/L (34-104) H 08/02/17 16:09 Total Creatine Kinase 80 U/L (10-223) 08/02/17 16:09 Troponin I 0.00 ng/mL (<0.04) 08/02/17 16:09 C-Reactive Protein 30.37 mg/L (< 5.00) H 08/02/17 16:09 Total Protein 7.3 g/dL (6.4-8.9) 08/02/17 16:09 Albumin 4.0 g/dL (3.2-5.2) 08/02/17 16:09 Globulin 3.3 g/dL (2-4) 08/02/17 16:09 Albumin/Globulin Ratio 1.2 (1-3) 08/02/17 16:09 Urine Color [place] 08/02/17 14:50 Urine Appearance Clear 08/02/17 14:50 Urine pH 5.0 (5-9) 08/02/17 14:50 Ur Specific [place] 1.036 (1.010-1.030) H 08/02/17 14:50 Urine Protein Negative (Negative) 08/02/17 14:50 Urine Ketones Negative (Negative) 08/02/17 14:50 Urine Blood Negative (Negative) 08/02/17 14:50 Urine Nitrate Negative (Negative) 08/02/17 14:50 Urine Bilirubin 1+ (Negative) 08/02/17 14:50 Urine Urobilinogen Positive (Negative) H 08/02/17 14:50 Ur Leukocyte Esterase Negative (Negative) 08/02/17 14:50 Urine Glucose Negative (Negative) 08/02/17 14:50 Urine Ascorbic Acid * (Negative) H 08/02/17 14:50 Urine Opiates Screen Presumptive positive (None Detect) H 08/02/17 20:55 Ur Barbiturates Screen None detected (None Detect) 08/02/17 20:55 Ur Phencyclidine Scrn None detected (None Detect) 08/02/17 20:55 Ur Amphetamines Screen Presumptive positive (None Detect) H 08/02/17 20:55 U Benzodiazepines Scrn Presumptive positive (None Detect) H 08/02/17 20:55 Urine Cocaine Screen None detected (None Detect) 08/02/17 20:55 U Cannabinoids Screen Presumptive positive (None Detect) H 08/02/17 20:55 HIV 1&2 Antibody Nonreactive (Nonreactive) 08/05/17 07:21 General: Well appearing, NAD LUE: Incision is CDI without erythema of wound edges or drainage. No streaking erythema. Not moving shoulder at this time. Intact flexion and extension of elbow and wrist. 5/5 slot attendant strength. Sensation intact to light touch of all 5 digits. Flexion, extension, abduction and adduction of all 5 digits intact. Radial pulse 2+ Assessment: Left proximal humerus osteomylitis. S/P I&D 08/[address] Lorenzo. Plan: - Per ID: IV ancef 2 gm IV Q8 hrs; day 02/08 then long course PO antibiotics. Rifampin 600 daily, weekly CBC, CMP, CRP. - Continued pain control
--- NOTE | 2017-08-10 18:52 | CONS ---
CONSULTATION REPORT: DATE OF CONSULT: 08/10/17 PATIENT OF: Dr. Srinivasan, Dr. Baum, Dr. Garcia. HISTORY OF PRESENT ILLNESS: This is a 42-year-old man I am asked to evaluate for left foot numbness and weakness. He notes that his symptoms began when he fell asleep with his left leg sticking out of a warm area and laterally rotated. When he woke up, he had left foot numbness and some weakness in his foot. He had some occasional sharp brief pains associated with this. His symptoms have been about the same in the past 4 days. The numbness, if anything, may be a little bit better. He presented with a left shoulder wound as well, this is the primary reason he is in hospital. He is being treated for osteomyelitis. PAST MEDICAL/SURGICAL HISTORY: He has a history of bipolar disease, PTSD, anxiety, depression, IV drug use, arthritis, hypertension, TBI, hepatitis C, sciatica. He is status post left shoulder surgery and facial reconstruction. MEDICATIONS: At home include; 1. Ritalin 27 mg b.i.d. 2. Gabapentin 800 mg t.i.d. 3. Suboxone 24 mg daily. His medications in hospital also include; 1. Kefzol. 2. Dilaudid. 3. Rifampin. ALLERGIES: He has no known drug allergies. FAMILY HISTORY: Mother has a history of breast cancer. Father of suicide. SOCIAL HISTORY: He is an IV drug user including abusing Suboxone, methamphetamines and heroin. He smokes 5 to 10 cigarettes a day since he was a teenager. He does not drink. REVIEW OF SYSTEMS: He has had some chills. He has had no weakness or numbness elsewhere. No current back pain. PHYSICAL EXAM: Temperature 97.9, pulse 93, respirations 18, blood pressure 128/ 66. He is alert and oriented with normal speech and comprehension. Cranial nerves II through XII were normal. Fundi were normal. Motor exam revealed normal tone and strength other than 4+/5 strength in left foot dorsiflexion. Right foot was normal. Plantar flexion was normal with 5/5 bilaterally. He had normal sensation to light touch everywhere other than 2 toes on his left foot. Reflexes were 1 and equal. Toes were downgoing. Chest: Clear. Cardiovascular: Regular rate and rhythm. Abdomen: Soft with positive bowel sounds. LABORATORY DATA: Labs included white count 6.8, hematocrit of 34, platelet count of 212,000. Normal INR and PTT. Normal CMP other than alk-phos of 137, C -reactive protein 30.7. UA is positive for urobilinogen. His urine tox screen was positive for opiates, amphetamines, benzodiazepines and cannabinoid. HIV antibody was nonreactive. 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 His foot was very cold and some of hissymptoms may be related to non-neurological issues. He is having some sharp nerve pain, said they are not frequent, I would not treat them at this point. If that gets worse, then something like gabapentin may be of benefit. Typically his symptoms of peroneal neuropathy will improve with time, but if he does not seem to get better within next 3 to 4 weeks' time, I would be glad to see him for EMG nerve conductions studies and what ever followup is needed. Thank you for sharing his case. [id number]/[facility] #: [id number] JAI
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
[2017-08-11] MEDS: HYDROmorphone INJ* 2 MG/ML CARPUJECT SYRINGE IV SLOW PU PRN ×3 (00:02→06:21)
[2017-08-11] MEDS: ceFAZolin 2 GM PREMIX (*) 2 GM/50 ML BAG IVPB SCH ×2 (01:26→08:28)
[2017-08-11] MEDS: hydrOXYzine HCL TAB* 25 MG PO PRN ×2 (01:36→05:41)
[2017-08-11] MEDS: oxyCODONE/Acetamin 5/325 MG* TAB PO PRN ×2 (03:12→08:11)
[2017-08-11] MEDS: Heparin VIAL(*) 5000 UNITS/ML VIAL (FIVE THOUSAND) SUBCUT SCH ×2 (05:49→15:41)
[2017-08-11 06:21] VITALS: BP 133/90
[2017-08-11] MEDS: Gabapentin CAP(*) 300 MG PO SCH ×2 (08:15→15:40)
[2017-08-11] MEDS: Methylphenidate ER 27 MG TAB PO SCH (08:15)
[2017-08-11] MEDS: RiFAMPin CAP* 300 MG CAP PO SCH (08:26)
[2017-08-11] MEDS ORDERED: LORazepam INJ* 2 MG/ML 1 ML VIAL IV PUSH ONE (08:37)
[2017-08-11] MEDS: oxyCODONE TAB* 5 MG TAB PO PRN ×3 (09:47→15:50)
--- NOTE | 2017-08-11 14:28 | PN ---
Progress Note - Progress Note Date of Service: 08/11/17 SOAP: Subjective: 42 y/o male s/p I&D L shoulder by DR. Driscoll 08/04 current in house for IV ABX. Patient overall feeling well, no complaints/ concerns. Is working on shoulder getting more motion, concerned with pain medication/ suboxone. VSS afebrile overnight. Objective: General- Well appearing, NAD AO MSK- dressing removed from L shoulder, incision C/D/I, minimal erythema around suture sites, no drainage noted, small 1cm stain on gauze of yellow/ brown, no odor. flexion- 20, abd- 20 with compensation from muscles/ trap. rad/ ulnar 2+ full elbow, wrist ROM without pain. Vital Signs Temp 98.2 F 08/11/17 06:20 Pulse 101 08/11/17 06:20 Resp 16 08/11/17 12:49 BP 133/90 08/11/17 06:20 Pulse Ox 100 08/11/17 06:20 Intake & Output 08/10/17 08/11/17 08/11/17 18:59 06:59 18:59 Intake Total 1170 1175 Output Total 0 1000 Balance 1170 175 Intake: IV Fluids 55 NS (0.9%) 10 cefazolin 45 IVPB 50 cefazolin 50 Oral 1120 1120 Output: Urine 0 1000 Other: Estimated Void Medium # Bowel Movements 0 0 # Voids 1 1 Assessment: 42 y/o male s/p I&D L shoulder by DR. Driscoll 08/04 current in house for IV ABX. Plan: - Continue IV ABX - Daily dressing changes - Remove sutures within 12-14 days post-op - inop cultures neg, shoulder cultures + for staph, pending C&S. Active Medications Generic Name Dose Route Start Last Admin Trade Name Freq PRN Reason Stop Dose Admin Acetaminophen 650 mg 08/02/17 20:27 Tylenol Tab* PO Q4H PRN FEVER/PAIN Docusate Sodium 200 mg 08/04/17 17:06 08/05/17 20:39 Colace Cap* PO 200 mg DAILY PRN Administration CONSTIPATION Gabapentin 600 mg 08/04/17 17:15 08/11/17 08:15 Neurontin Cap(*) PO 600 mg TID [facility] Administration Heparin Sodium (Porcine) 5,000 units 08/02/17 22:00 12/29/17 05:49 Heparin Vial(*) SUBCUT Not Given Q8HR [facility] Heparin Sodium (Porcine) 1 - 3 ml 08/09/17 18:00 08/11/17 05:41 Heparin Flush Picc/Ml/Cvc(*) FLUSH 1 ml 0600,1800 [facility] Administration Protocol Hydroxyzine HCl 25 mg 08/05/17 08:31 08/11/17 05:41 Atarax Tab* PO 25 mg Q4H PRN Administration ANXIETY Cefazolin Sodium/Dextrose 2 gm in 50 mls @ 100 mls/hr 08/04/17 17:15 08:28 Kefzol 2 Gm Premix(*) IVPB 100 mls/hr 0100,0900,1700 [facility] Administration Methylphenidate HCl 27 mg 08/07/17 21:00 08/11/17 08:15 Concerta PO 27 mg BID [facility] Administration Ondansetron HCl 4 mg 08/02/17 20:27 08/03/17 06:00 Zofran Inj* IV 4 mg Q6H PRN Administration NAUSEA Oxycodone HCl 10 mg 08/11/17 08:35 08/11/17 12:49 Roxycodone Tab* PO 10 mg Q3H PRN Administration PAIN Polyethylene Glycol/Electrolytes 17 gm 08/04/17 17:07 08/05/17 17:23 Miralax* PO 17 gm DAILY PRN Administration CONSTIPATION Rifampin 600 mg 08/10/17 09:00 08/11/17 08:26 Rifampin Cap* PO 600 mg DAILY [facility] Administration Simethicone 80 mg 08/08/17 11:50 08/08/17 13:07 Mylicon Tab* PO 80 mg Q6H PRN Administration DYSPEPSIA <Alida Linn - Last Filed: 08/11/17 14:24> - Progress Note SOAP: Subjective: Patient is more comfortable, pain decreased left shoulder, on Suboxone now. Objective: NAD, comfortable-appearing LUE: - Dressing c/d/i - No pain with limited PROM shoulder - NVID including axillary nerve distribution sensation Cx- staph Assessment: POD 7 left proximal humerus I&D and removal of hardware for osteomyelitis and draining wound, chronic IVDU Plan: - Continue abx per Ginette - Continue daily dressing changes - Stitches will be removed on ~ POD 14 <Jay Driscoll - Last Filed: 08/13/17 23:16>
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
== END 2017-08-11 15:39 | disposition swing bed (61) | DRG 315 ==
LOC: ED 14:53 → MED 19:32
PROVIDERS: ADMIT Hospitalist; ATTEND Internal Medicine
PROC: 02HV33Z Insertion of Infusion Device into Superior Vena Cava, Percutaneous Approach (ICD-10-PCS; principal; 2017-08-09)
PROC: 0PBG0ZZ Excision of Left Humeral Shaft, Open Approach (ICD-10-PCS; 2017-08-09)
PROC: 0XP70YZ Removal of Other Device from Left Upper Extremity, Open Approach (ICD-10-PCS; 2017-08-09)
PROC: 0PBD0ZZ Excision of Left Humeral Head, Open Approach (ICD-10-PCS; 2017-08-09)
DX: T84.7XXA Infection and inflammatory reaction due to other internal orthopedic prosthetic devices, implants and grafts, initial encounter (principal); M86.622 Other chronic osteomyelitis, left humerus; F11.20 Opioid dependence, uncomplicated; T33.822A Superficial frostbite of left foot, initial encounter; L02.414 Cutaneous abscess of left upper limb; L03.114 Cellulitis of left upper limb; I10 Essential (primary) hypertension; G89.29 Other chronic pain; F41.9 Anxiety disorder, unspecified; F17.210 Nicotine dependence, cigarettes, uncomplicated; F43.10 Post-traumatic stress disorder, unspecified; F31.9 Bipolar disorder, unspecified; B19.20 Unspecified viral hepatitis C without hepatic coma; M54.30 Sciatica, unspecified side; G62.9 Polyneuropathy, unspecified; K59.00 Constipation, unspecified; B95.61 Methicillin susceptible Staphylococcus aureus infection as the cause of diseases classified elsewhere; M19.012 Primary osteoarthritis, left shoulder; F15.10 Other stimulant abuse, uncomplicated; Y79.3 Surgical instruments, materials and orthopedic devices (including sutures) associated with adverse incidents; M21.372 Foot drop, left foot; Z81.1 Family history of alcohol abuse and dependence; Z82.49 Family history of ischemic heart disease and other diseases of the circulatory system; Z81.8 Family history of other mental and behavioral disorders; Z83.6 Family history of other diseases of the respiratory system; Z59.0 Homelessness; Z80.3 Family history of malignant neoplasm of breast; Z87.820 Personal history of traumatic brain injury; X31.XXXA Exposure to excessive natural cold, initial encounter; Y92.009 Unspecified place in unspecified non-institutional (private) residence as the place of occurrence of the external cause
CPT/HCPCS: 36415; 71010; 80048; 80053; 80307; 81003; 82550; 83605; 84484; 85025; 85610; 85652; 85730; 86140; 86703; 87040; 87070; 87073; 87077; 87186; 87205; 87640; 87641; 88300; 93005; A9270-GY; J0690; J1170; J1644; J1885; J2060; J2250; J2405; J2704; J3010; J3360

== ENCOUNTER 2017-08-11 15:25 | Inpatient (IN) | payer OTHER ==
[2017-08-11] MEDS ORDERED: Methadone TAB* 10 MG PO ONE (15:42)
[2017-08-11] MEDS ORDERED: Docusate CAP* 100 MG PO PRN (16:15)
[2017-08-11] MEDS ORDERED: Acetaminophen TAB* 325 MG PO PRN (16:15)
[2017-08-11] MEDS ORDERED: Polyethylene Glycol 3350* 17 GM PACKET PO PRN (16:15)
[2017-08-11] MEDS ORDERED: Ondansetron INJ* 2 MG/ML VIAL IV PRN (16:15)
[2017-08-11] MEDS ORDERED: Simethicone TAB* 80 MG TAB.CHEW PO PRN (16:15)
[2017-08-11] MEDS ORDERED: hydrOXYzine HCL TAB* 25 MG PO PRN (16:15)
[2017-08-11] MEDS: ceFAZolin 2 GM PREMIX (*) 2 GM/50 ML BAG IVPB SCH (18:17)
[2017-08-11] MEDS: Gabapentin CAP(*) 300 MG PO SCH (21:38)
[2017-08-11] MEDS: Methadone TAB* 10 MG PO SCH (21:39)
[2017-08-12] MEDS: ceFAZolin 2 GM PREMIX (*) 2 GM/50 ML BAG IVPB SCH ×3 (01:40→22:45)
[2017-08-12] MEDS: Gabapentin CAP(*) 300 MG PO SCH ×3 (08:29→22:44)
[2017-08-12] MEDS: Methylphenidate ER 27 MG TAB PO SCH ×2 (08:29→18:09)
[2017-08-12] MEDS: RiFAMPin CAP* 300 MG CAP PO SCH (08:30)
[2017-08-12] MEDS: Methadone TAB* 10 MG PO SCH ×3 (08:30→22:43)
--- NOTE | 2017-08-12 10:47 | PN ---
Progress Note - Progress Note Date of Service: 08/12/17 SOAP: Subjective: Left shoulder more comfortable. Per patient, no drainage on dressing with daily change this morning by nursing. Objective: LUE: - Incision c/d/i except distal scab. I removed the scab and there is small diastasis between skin edges, less than 5 mm - No drainage from incision. Reduced swelling. - No significant pain with PROM to 50 degree of abduction, 60 degrees internal rotation. - NVID including axillary nerve Microbiology 08/04/17 14:25 Shoulder Left Gram Stain - Final 08/04/17 14:25 Shoulder Left Wound Culture - Final Staphylococcus Aureus 08/02/17 16:37 Shoulder Left Skin and Soft Tissue MRSA/MSSA (PCR - Final 08/02/17 16:37 Shoulder Left Wound Culture - Final Mrsa Negative S.aureus Positive Staphylococcus Aureus Selected Entries 08/12/17 07:22 Temperature 98.1 F Pulse Rate 89 Respiratory 16 Rate Blood Pressure 135/77 (mmHg) O2 Sat by Pulse 98 Oximetry Assessment: POD 10 I&D left proximal humerus and removal of hardware (rotator cuff anchor) Chronic draining wound and proximal humerus osteomyelitis (6 months+). No clear involvement of glenohumeral joint in infection by history, exam or imaging Plan: - Continue IV abx via PICC line per Ginette - Continue Methadone tid per Dr. Trejo - DSD change daily. Patient may shower - Hold off on PT. - Defer to Ginette on getting blood inflammatory markers in several weeks.
--- NOTE | 2017-08-12 13:58 | PN ---
Subjective Date of Service: 08/12/17 Interval History: Pt was found to have a clogged midline and then admitted to [facility] that he had crushed a ritalin that he found in his backpack (acquired from friend prior to admission that did have syringes and drugs intially that were surrendered), then crushing the pill and injecting into his midline, using flush with saline he found in the trash. Pt strongly asserts this happened two days ago in the midst of his withdrawal symptoms. However has received multiple doses of anitibiotic since that point in time without problem. Midline ordered removed and replaced. Case discussed with ID physician Jd Peng. Objective Active Medications: Acetaminophen (Tylenol Tab*) 650 mg PO Q4H PRN PRN Reason: FEVER/PAIN Docusate Sodium (Colace Cap*) 200 mg PO DAILY PRN PRN Reason: CONSTIPATION Gabapentin (Neurontin Cap(*)) 600 mg PO TID PENDING SALE TO [facility] Last Admin: 08/12/17 08:29 Dose: 600 mg Heparin Sodium (Porcine) (Heparin Flush Picc/Ml/Cvc(*)) 1 - 3 ml FLUSH 0600, 1800 PENDING SALE TO [facility] PRN Reason: Protocol Last Admin: 08/12/17 09:11 Dose: 1 ml Hydroxyzine HCl (Atarax Tab*) 25 mg PO Q4H PRN PRN Reason: ANXIETY Cefazolin Sodium/Dextrose (Kefzol 2 Gm Premix(*)) 2 gm in 50 mls @ 100 mls/hr IVPB Q8H PENDING SALE TO [facility] Last Admin: 08/12/17 08:32 Dose: 100 mls/hr Methadone HCl (Dolophine Tab*) 20 mg PO TID PENDING SALE TO [facility] Last Admin: 08/12/17 08:30 Dose: 20 mg Methylphenidate HCl (Concerta) 27 mg PO 0800,1800 PENDING SALE TO [facility] Last Admin: 08/12/17 08:29 Dose: 27 mg Ondansetron HCl (Zofran Inj*) 4 mg IV Q6H PRN PRN Reason: NAUSEA Polyethylene Glycol/Electrolytes (Miralax*) 17 gm PO DAILY PRN PRN Reason: CONSTIPATION Rifampin (Rifampin Cap*) 600 mg PO DAILY PENDING SALE TO [facility] Last Admin: 08/12/17 08:30 Dose: 600 mg Simethicone (Mylicon Tab*) 80 mg PO Q6H PRN PRN Reason: DYSPEPSIA Last Admin: 08/12/17 08:43 Dose: 80 mg Vital Signs - 8 hr 08/12/17 08/12/17 08/12/17 07:22 08:29 08:30 Temperature 98.1 F Pulse Rate 89 Respiratory 16 16 16 Rate Blood Pressure 135/77 (mmHg) O2 Sat by Pulse 98 Oximetry 08/12/17 08/12/17 09:50 11:11 Temperature Pulse Rate Respiratory 16 16 Rate Blood Pressure (mmHg) O2 Sat by Pulse Oximetry Oxygen Devices in Use Now: None Appearance: NAD, Eyes: No Scleral Icterus, PERRLA Ears/Nose/Mouth/Throat: Mucous Membranes Moist, - - poor dentition Respiratory: Symmetrical Chest Expansion and Respiratory Effort Cardiovascular: NL Sounds; No Murmurs; No JVD, RRR Abdominal: NL Sounds; No Tenderness; No Distention Extremities: No Edema, - - slight purple discoloration superior left foot. left shoulder with bandage. Skin: - - slight purple discoloration superior left foot Neurological: Alert and Oriented x 3, - - parasthesias left 1st, 2nd, 3rd toes. Assess/Plan/Problems-Billing Assessment: 42 yo male PMH IV heroin and polysubstance abuse (on outpatient suboxone but recent heroin relapse) presenting with left shoulder osteomyelitis s/p debridement and metallic rotator cuff tendon hardware along with mild frostbite to left toes. MSSA on cefazolin and rifampin. Admitted to injecting his ritalin into midline. - Patient Problems (1) Osteomyelitis of shoulder, left Current Visit: No Status: Acute Code(s): M86.9 - OSTEOMYELITIS, UNSPECIFIED SNOMED Code(s): 60418741 Comment: S/P bone debridment and hardware removal 08/04/17 MSSA in shoulder C&S. Blood Cx NG. 4 week Long course IV cefazolin + rifampin, followed by alf po suppressive antibiotics. Midline needs to be replaced given line manipulation/ contamination. ID and ortho consults appreciated (2) Opiate addiction Current Visit: No Status: Acute Code(s): F11.20 - OPIOID DEPENDENCE, UNCOMPLICATED SNOMED Code(s): 98978421 Comment: As outpatient on suboxone x 1 year but from previous notes some concern from prescriber if he is taking it or selling it. Pt reportedly told nurse 08/05 that he took heroin in the ED. appreciate pain managment recs. On methadone 20mg TID. Found injecting ritalin in his midline, removed and ordered replaced. No visitors without supervision in room. Security to search belongings again. Observed pill swallows. Contract for safety otherwise discharge from facility. PRN hydroxyzine for anxiety (3) Numbness of left foot Current Visit: No Status: Acute Code(s): R20.8 - OTHER DISTURBANCES OF SKIN SENSATION SNOMED Code(s): 818123334 Comment: likely 2/2 frostbite exposure, slowly improving. Appreciate neurology recs: continue physical therapy and consider EMG in several weeks. (4) PTSD (post-traumatic stress disorder) Current Visit: No Status: Acute Code(s): F43.10 - POST-TRAUMATIC STRESS DISORDER, UNSPECIFIED SNOMED Code(s): 35089928 (5) Tobacco abuse Current Visit: No Status: Acute Code(s): Z72.0 - TOBACCO USE SNOMED Code(s ): 995602310 Comment: Dx noted. Status and Disposition: SWING status pt. Attending: Kevin Baum
[2017-08-13] MEDS: ceFAZolin 2 GM PREMIX (*) 2 GM/50 ML BAG IVPB SCH ×3 (01:24→17:21)
[2017-08-13] MEDS: Gabapentin CAP(*) 300 MG PO SCH ×3 (08:52→20:15)
[2017-08-13] MEDS: Methadone TAB* 10 MG PO SCH ×3 (08:52→20:14)
[2017-08-13] MEDS: RiFAMPin CAP* 300 MG CAP PO SCH (08:54)
[2017-08-13] MEDS: Methylphenidate ER 27 MG TAB PO SCH ×2 (10:06→17:21)
[2017-08-14] MEDS: ceFAZolin 2 GM PREMIX (*) 2 GM/50 ML BAG IVPB SCH ×3 (00:57→20:51)
[2017-08-14] MEDS: Gabapentin CAP(*) 300 MG PO SCH ×3 (08:04→21:03)
[2017-08-14] MEDS: Methylphenidate ER 27 MG TAB PO SCH ×2 (08:11→18:14)
[2017-08-14] MEDS: Methadone TAB* 10 MG PO SCH ×3 (08:11→21:02)
[2017-08-14] MEDS: RiFAMPin CAP* 300 MG CAP PO SCH (08:12)
[2017-08-14] MEDS ORDERED: Hydrocortisone 1% CREAM* 30 GM TUBE TOPICAL PRN (09:00)
[2017-08-14] MEDS ORDERED: ceFAZolin 2 GM PREMIX (*) 2 GM/50 ML BAG IVPB SCH (21:15)
[2017-08-15] MEDS: ceFAZolin 1 GM VIAL(*) IM SCH ×4 (00:31→05:41)
[2017-08-15] MEDS: RiFAMPin CAP* 300 MG CAP PO SCH ×2 (08:48→09:08)
[2017-08-15] MEDS: Gabapentin CAP(*) 300 MG PO SCH ×4 (08:48→20:48)
[2017-08-15] MEDS: Methadone TAB* 10 MG PO SCH ×3 (08:49→20:47)
[2017-08-15] MEDS: Methylphenidate ER 27 MG TAB PO SCH (09:02)
[2017-08-15] MEDS ORDERED: Nicotine Inhaler* 10 MG AMP INH PRN (11:16)
[2017-08-15] MEDS ORDERED: Mouth Piece, Nicotine* 1 EACH CARTRIDGE INH PRN (11:16)
[2017-08-15] MEDS ORDERED: Cephalexin CAP* 500 MG PO SCH (13:00)
[2017-08-15] MEDS: Methylphenidate TAB* 5 MG PO SCH ×2 (13:57→20:49)
--- NOTE | 2017-08-15 15:15 | PN ---
Subjective Date of Service: 08/15/17 Interval History: Patient had an event overnight where after he was given his pills he ran into the bathroom and would not let anyone in. Patient states that this was due to pain from his recently inserted IV site. There is concern that the patient was crushing and injecting his Methadone. Patient denies this and will allow for his narcotic medications to be crushed in applesauce to avoid diversion. Patient states he is not sleeping well due to pain and requested a later dose of Methadone. Patient also states that he has burning pain in his feet after his cold injury and requested more gabapentin. Patient stats the pain in his shoulder is decreased but present. Patient denies other complaint. Family History: Unchanged from Admission Social History: Unchanged from Admission Past Medical History: Unchanged from Admission Objective Active Medications: Acetaminophen (Tylenol Tab*) 650 mg PO Q4H PRN PRN Reason: FEVER/PAIN Cephalexin HCl (Keflex Cap*) 500 mg PO QID [facility] Last Admin: 08/15/17 13:56 Dose: 500 mg Device (Nicotine Mouth Piece*) 1 each INH .USE WITH NICOTROL PRN PRN Reason: CRAVING Docusate Sodium (Colace Cap*) 200 mg PO DAILY PRN PRN Reason: CONSTIPATION Gabapentin (Neurontin Cap(*)) 600 mg PO TID [facility] Last Admin: 08/15/17 13:56 Dose: 600 mg Heparin Sodium (Porcine) (Heparin Flush Picc/Ml/Cvc(*)) 1 - 3 ml FLUSH 0600, 1800 [facility] PRN Reason: Protocol Last Admin: 08/15/17 05:41 Dose: Not Given Hydrocortisone (Hytone Cream 1%*) 1 applic TOPICAL TID PRN PRN Reason: DRY SKIN Hydroxyzine HCl (Atarax Tab*) 25 mg PO Q4H PRN PRN Reason: ANXIETY Methadone HCl (Dolophine Tab*) 20 mg PO TID [facility] Last Admin: 08/15/17 13:57 Dose: 20 mg Methylphenidate HCl (Ritalin Tab*) 15 mg PO TID [facility] Last Admin: 08/15/17 13:57 Dose: 15 mg Nicotine (Nicotine Inhaler*) 10 mg INH Q2H PRN PRN Reason: CRAVING Ondansetron HCl (Zofran Inj*) 4 mg IV Q6H PRN PRN Reason: NAUSEA Polyethylene Glycol/Electrolytes (Miralax*) 17 gm PO DAILY PRN PRN Reason: CONSTIPATION Rifampin (Rifampin Cap*) 600 mg PO DAILY [facility] Last Admin: 08/15/17 09:08 Dose: Not Given Simethicone (Mylicon Tab*) 80 mg PO Q6H PRN PRN Reason: DYSPEPSIA Last Admin: 08/12/17 08:43 Dose: 80 mg Vital Signs - 8 hr 08/15/17 08/15/17 08/15/17 08:00 08:08 08:49 Pulse Rate 68 Respiratory 15 17 14 Rate Blood Pressure 116/74 (mmHg) 08/15/17 08/15/17 08/15/17 11:17 13:56 13:57 Pulse Rate Respiratory 15 16 15 Rate Blood Pressure (mmHg) Oxygen Devices in Use Now: None Appearance: Patient is a 42yo male who appears stated age and is sitting in the bed in [facility]. Eyes: No Scleral Icterus, PERRLA Ears/Nose/Mouth/Throat: NL Teeth, Lips, Gums, Clear Oropharnyx, Mucous Membranes Moist Neck: NL Appearance and Movements; NL JVP, Trachea Midline Respiratory: Symmetrical Chest Expansion and Respiratory Effort, Clear to Auscultation Cardiovascular: NL Sounds; No Murmurs; No JVD, RRR, No Edema Abdominal: NL Sounds; No Tenderness; No Distention, No Hepatosplenomegaly Lymphatic: No Cervical Adenopathy Skin: No Rash or Ulcers, No Nodules or Sclerosis Neurological: Alert and Oriented x 3, NL Muscle Strength and Tone, - - Burning pain along dorsum of left foot with allodynia. Assess/Plan/Problems-Billing Assessment: 42 yo male PMH IV heroin and polysubstance abuse (on outpatient suboxone but recent heroin relapse) presenting with left shoulder osteomyelitis s/p debridement and metallic rotator cuff tendon hardware along with mild frostbite to left toes. MSSA on cefazolin and rifampin. Admitted to injecting his ritalin into midline. Concern for further diversion. - Patient Problems (1) Osteomyelitis of shoulder, left Current Visit: No Status: Acute Code(s): M86.9 - OSTEOMYELITIS, UNSPECIFIED SNOMED Code(s): 82348369 Comment: S/P bone debridment and hardware removal 08/04/17 MSSA in shoulder C&S. Blood Cx NG. 4 week Long course IV cefazolin + rifampin, followed by jail po suppressive antibiotics. Midline needs to be replaced given line manipulation/ contamination. ID and ortho consults appreciated Midline unable to be replaced today. Patient refuses IM ABX. Will give PO ABX today and then resume antibiotics when midline replaced. (2) Chronic pain Current Visit: No Status: Acute Code(s): G89.29 - OTHER CHRONIC PAIN SNOMED Code(s): 51722172 Comment: On Methadone, on Suboxone outpatient. Pain consult appreciated. Will consult in regards to increasing Methadone and Gabapentin dosing. (3) Numbness of left foot Current Visit: No Status: Acute Code(s): R20.8 - OTHER DISTURBANCES OF SKIN SENSATION SNOMED Code(s): 096329752 Comment: likely 2/2 frostbite exposure, slowly improving. Appreciate neurology recs: continue physical therapy and consider EMG in several weeks. Continue Gabapentin (4) Opiate misuse Current Visit: No Status: Acute Code(s): F11.90 - OPIOID USE, UNSPECIFIED, UNCOMPLICATED SNOMED Code(s): 021288781 Comment: On Methadone. Concern for continued diversion of medications. Will monitor closely. (5) Tobacco abuse Current Visit: No Status: Acute Code(s): Z72.0 - TOBACCO USE SNOMED Code(s ): 280513063 Comment: Given inhaler due to cravings. (6) DVT prophylaxis Current Visit: No Status: Acute Code(s): PWH0102 - SNOMED Code(s): 288084842 Comment: HSQ (7) Full code status Current Visit: Yes Status: Acute Code(s): Z78.9 - OTHER SPECIFIED HEALTH STATUS SNOMED Code(s): 847174804 Status and Disposition: SWING status pt.
[2017-08-15] MEDS: DOXYcycline CAP(*) 100 MG PO SCH (20:47)
[2017-08-16 08:51] VITALS: BP 133/70
[2017-08-16] MEDS: Methadone TAB* 10 MG PO SCH (09:12)
[2017-08-16] MEDS: Methylphenidate TAB* 5 MG PO SCH (09:12)
[2017-08-16] MEDS: DOXYcycline CAP(*) 100 MG PO SCH (09:12)
[2017-08-16] MEDS: Gabapentin CAP(*) 300 MG PO SCH (09:12)
[2017-08-16] MEDS: RiFAMPin CAP* 300 MG CAP PO SCH (09:12)
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
== END 2017-08-16 09:45 | disposition home or self-care (01) | DRG 344 ==
LOC: MED 15:40
PROVIDERS: ADMIT Internal Medicine; ATTEND Internal Medicine
DX: M86.122 Other acute osteomyelitis, left humerus (principal); T33.822A Superficial frostbite of left foot, initial encounter; B19.20 Unspecified viral hepatitis C without hepatic coma; X31.XXXA Exposure to excessive natural cold, initial encounter; Y92.89 Other specified places as the place of occurrence of the external cause; F11.10 Opioid abuse, uncomplicated; F31.9 Bipolar disorder, unspecified; F43.10 Post-traumatic stress disorder, unspecified; Z87.820 Personal history of traumatic brain injury; F41.9 Anxiety disorder, unspecified; F32.9 Major depressive disorder, single episode, unspecified; G89.29 Other chronic pain; F17.210 Nicotine dependence, cigarettes, uncomplicated; G56.20 Lesion of ulnar nerve, unspecified upper limb; Z59.0 Homelessness; Z79.2 Long term (current) use of antibiotics; Z79.899 Other long term (current) drug therapy; Z79.1 Long term (current) use of non-steroidal anti-inflammatories (NSAID)
CPT/HCPCS: 99406; A9270-GY; J0690

== ENCOUNTER 2018-08-16 17:42 | Emergency (ER) | payer SELFPAY ==
[2018-08-16 18:05] VITALS: BP 145/85
[2018-08-16] MEDS ORDERED: Ibuprofen TAB* 600 MG PO ONE (18:45)
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
--- NOTE | 2018-08-17 12:22 | UC ---
- Progress Note Progress Note: RADIOLOGY REPORT REVIEWED. NO ACUTE PATHOLOGY. NO CHANGE IN MGMT. Course/Dx - Diagnoses Provider Diagnoses: Left shoulder pain Discharge - Sign-Out/Discharge Documenting (check all that apply): Post-Discharge Follow Up All imaging exams completed and their final reports reviewed: Yes - Discharge Plan Condition: Stable Disposition: HOME Patient Education Materials: Shoulder Pain (ED) Referrals: Deonna Chappell MD [Medical Doctor] - Kena Garcia MD [Primary Care Provider] - Additional Instructions: FOLLOW UP WITH ORTHOPEDICS IF NOT COMPLETELY IMPROVED. TAKE IBUPROFEN 600MG EVERY 6 HOURS NEEDED. GET RECHECKED FOR ANY WORSENING OF YOUR CONDITION OR QUESTIONS OR CONCERNS. - Billing Disposition and Condition Condition: STABLE Disposition: Home
== END 2018-08-16 19:20 | disposition home or self-care (01) ==
LOC: UCEAST 17:42
DX: M25.512 Pain in left shoulder (principal); F17.210 Nicotine dependence, cigarettes, uncomplicated
CPT/HCPCS: 99212; A9270-GY; G0463

== ENCOUNTER 2018-12-12 12:20 | Emergency (ER) | payer SELFPAY ==
[2018-12-12 13:54] VITALS: BP 123/90
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
== END 2018-12-12 13:52 | disposition home or self-care (01) ==
LOC: ED 12:20
DX: M25.561 Pain in right knee (principal); I10 Essential (primary) hypertension; M06.9 Rheumatoid arthritis, unspecified; F41.9 Anxiety disorder, unspecified; F32.9 Major depressive disorder, single episode, unspecified; Z87.891 Personal history of nicotine dependence
CPT/HCPCS: 99281

== ENCOUNTER 2019-08-04 14:47 | Emergency (ER) | payer MEDICAID, OTHER ==
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
[2019-08-04] MEDS ORDERED: Ketorolac INJ* 30 MG/ML 1 ML VIAL IM ONE (15:33)
[2019-08-04 16:40] LABS: ABS Lymphocytes 1.3 10^3/ul (1.0-4.8); ABS Monocytes 0.4 10^3/ul (0-0.8); ABS Neutrophils 8.9 10^3/ul (1.5-7.7); ABS Nucleated RBC 0.1 10^3/ul; Eosinophil % 0.4 %; Hematocrit 48 % (42-52); Hemoglobin 16.9 g/dL (14.0-18.0); Lymphocyte % 11.8 %; Mean Corpuscular HGB Conc 35 g/dL (31-36); Mean Corpuscular Hemoglobin 28 pg (27-31); Mean Corpuscular Volume 79 fL (80-94); Mean Platelet Volume 7.5 fL (7.4-10.4); Nucleated Red Blood Cells % 0.6; Platelet Count 300 10^3/uL (150-450); Red Blood Count 6.07 10^6 /uL (4.18-5.48); Red Cell Distribution Width 13 % (10-15); White Blood Count 10.7 10^3/uL (3.5-10.8)
[2019-08-04 16:48] LABS: ALT 20 U/L (7-52); Albumin 4.4 g/dL (3.2-5.2); Albumin/Globulin Ratio 1.1 (1-3); Alkaline Phosphatase 136 U/L (34-104); BUN/Creatinine Ratio 16.4 (8-20); Blood Urea Nitrogen 10 mg/dL (6-24); C Reactive Protein 69.78 mg/L (<8.01); CO2 Carbon Dioxide 26 mmol/L (22-32); Chloride 99 mmol/L (101-111); EGFR African American 172.2 (>60); EGFR Non-African American 142.3 (>60); Globulin 4.1 g/dL (2-4); Glucose 80 mg/dL (70-100); Sodium 135 mmol/L (135-145); Total Protein 8.5 g/dL (6.4-8.9)
[2019-08-04 16:49] LABS: Anion Gap 10 mmol/L (2-11)
[2019-08-04 17:18] LABS: Acetaminophen < 15 mcg/mL; Alcohol < 10 mg/dL (<10); Salicylate < 2.50 mg/dL (<30)
[2019-08-04] MEDS ORDERED: Morphine 4 MG/ML VIAL (1 ml) 4 MG/ML VIAL IV ONE (17:19)
[2019-08-04 18:17] LABS: Urine Appearance Clear; Urine Bilirubin Negative (Negative); Urine Blood Negative (Negative); Urine Color Amber; Urine Glucose Negative (Negative); Urine Ketones Trace (Negative); Urine Nitrite Negative (Negative); Urine Protein Negative (Negative); Urine Specific Gravity 1.023 (1.010-1.030); Urine Urobilinogen Positive (Negative)
[2019-08-04 18:28] LABS: Urine Benzodiazepine Screen None Detected (None Detect); Urine Opiates Screen None Detected (None Detect)
[2019-08-04] MEDS ORDERED: Cyclobenzaprine TAB* 10 MG PO ONE (18:50)
--- NOTE | 2019-08-04 19:12 | ED ---
Progress - Progress Note Progress Note: Patient is received as a sign-out from Dr. Hill to Dr. Schuler at 1900 shift change pending MHE and disposition of this mental health patient. 2129 Patients case had been reviewed by Dr. Valenzuela. Patient to be discharged to home with outpatient mental health follow up. Dx of major depression and mood disorder. Re-Evaluation - Re-Evaluation First Eval Re-Evaluation Time: 18:33 Comment: patient medically cleared for MHE Course/Dx - Course Course Of Treatment: Patient is received as a sign-out from Dr. Hill to Dr. Schuler at 1900 08/04/19 shift change pending MHE and disposition of this mental health patient. 2129 Patients case had been reviewed by Dr. Valenzuela. Patient to be discharged to home with outpatient mental health follow up. Dx of major depression and mood disorder. - Diagnoses Provider Diagnoses: Major depression, Mood disorder - Provider Notifications Discussed Care Of Patient With: Mabel Valenzuela Time Discussed With Above Provider: 21:30 Instructed by Provider To: Other - 2129 Patients case had been reviewed by Dr. Valenzuela. Patient to be discharged to home with outpatient mental health follow up. Dx of major depression and mood disorder. Discharge ED - Sign-Out/Discharge Documenting (check all that apply): Patient Departure - discharge , Receiving Sign-Out Receiving patient FROM: Jeffrey Hill - Discharge Plan Condition: Stable Disposition: HOME Referrals: Kena Garcia MD [Primary Care Provider] - - Billing Disposition and Condition Condition: STABLE Disposition: Home - Attestation Statements Document Initiated by Javad: Yes Documenting Zainaibe: DOMINGO SUAREZ Provider For Whom Javad is Documenting (Include Credential): LANETTE SCHULER MD [employer] Attestation: DOMINGO Bundy, scrpanchitoed for LANETTE SCHULER MD on 08/06/19 at 0144. Scribe Documentation Reviewed: Yes Provider Attestation: The documentation as recorded by the DOMINGO guardado accurately reflects the service I personally performed and the decisions made by me, LANETTE SCHULER MD Status of Scribe Document: Viewed
[2019-08-04 22:46] VITALS: BP 00/00
== END 2019-08-04 22:44 | disposition home or self-care (01) ==
LOC: ED 14:47
DX: F32.9 Major depressive disorder, single episode, unspecified (principal); F39 Unspecified mood [affective] disorder; M54.5 Low back pain; R45.851 Suicidal ideations; F11.20 Opioid dependence, uncomplicated; I10 Essential (primary) hypertension; F41.9 Anxiety disorder, unspecified; F43.10 Post-traumatic stress disorder, unspecified; F17.210 Nicotine dependence, cigarettes, uncomplicated
CPT/HCPCS: 36415; 72110; 80053; 80307; 80320; 80329; 81003; 85025; 85652; 86140; 96372; 96374; 99284; A9270-GY; G0480; J1885; J2270

== ENCOUNTER 2020-05-31 10:41 | Observation (INO) ==
[2020-05-31] MEDS ORDERED: NS 0.9% 1000 ml BAG 1,000 ML IV.FLUID IV ONE (12:04)
[2020-05-31] MEDS ORDERED: Piperacillin/Tazobac ADVAN 3.375 GM in NS 0.9% 100 ml BAG 100 ML IVPB ONE (12:05)
[2020-05-31] MEDS ORDERED: NS 0.9% 250 ml 250 ML ONE (12:22)
[2020-05-31] MEDS ORDERED: Vancomycin 1,250 MG in NS 0.9% 250 ml 250 ML IVPB ONE (13:00)
[2020-05-31] MEDS ORDERED: Buprenorp/Nalox 8-2 MG FILM SL FILM ONE (16:49)
[2020-05-31 17:13] LABS: ABS Lymphocytes 0.6 10^3/ul (1.0-4.8); ABS Monocytes 0.7 10^3/ul (0-0.8); Hematocrit 46 % (42-52); Hemoglobin 15.9 g/dL (14.0-18.0); Lymphocyte % 4.5 %; Mean Corpuscular HGB Conc 35 g/dL (31-36); Mean Corpuscular Hemoglobin 29 pg (27-31); Mean Corpuscular Volume 84 fL (80-94); Mean Platelet Volume 8.8 fL (7.4-10.4); Platelet Count 123 10^3/uL (150-450); Red Blood Count 5.49 10^6 /uL (4.18-5.48); Red Cell Distribution Width 14 % (10-15); White Blood Count 14.3 10^3/uL (3.5-10.8)
[2020-05-31 17:24] LABS: Activated Partial Thrombo Time 31.7 seconds (26.0-38.0); INR 1.2 (0.82-1.09)
[2020-05-31 18:06] LABS: Urine Appearance Clear; Urine Bilirubin Negative (Negative); Urine Blood Negative (Negative); Urine Color Amber; Urine Glucose 1+(50 mg/dL) (Negative); Urine Ketones Negative (Negative); Urine Nitrite Negative (Negative); Urine Protein Negative (Negative); Urine Specific Gravity 1.026 (1.010-1.030); Urine Urobilinogen Positive (Negative)
[2020-05-31 18:16] LABS: Influenza A Molecular Negative (Negative); Influenza B Molecular Negative (Negative)
[2020-05-31 19:00] LABS: Anion Gap 3 mmol/L (2-11); BUN/Creatinine Ratio 15.6 (8-20); Blood Urea Nitrogen 12 mg/dL (6-24); CO2 Carbon Dioxide 26 mmol/L (22-32); Chloride 99 mmol/L (101-111); EGFR African American 131.6 (>60); EGFR Non-African American 108.8 (>60); Glucose 157 mg/dL (70-100); Sodium 128 mmol/L (135-145)
[2020-05-31 19:01] LABS: ALT 524 U/L (7-52); Albumin 3.9 g/dL (3.2-5.2); Albumin/Globulin Ratio 1.1 (1-3); Alkaline Phosphatase 102 U/L (34-104); C Reactive Protein 30.65 mg/L (<8.01); Calcium 9.3 mg/dL (8.6-10.3); Globulin 3.4 g/dL (2-4); Total Protein 7.3 g/dL (6.4-8.9); Troponin I 0.01 ng/mL (<0.03)
[2020-05-31 19:59] LABS: Hepatitis B Surface Antigen Nonreactive (Nonreactive)
[2020-05-31 20:04] LABS: Hepatitis A Ab IgM Reactive (Negative)
[2020-05-31 20:05] LABS: Hepatitis B Core IgM Nonreactive (Nonreactive)
[2020-05-31 20:16] LABS: Creatine Kinase 84 U/L (10-223)
[2020-05-31 21:01] LABS: Hepatitis C Antibody Reactive (Negative)
[2020-05-31] MEDS ORDERED: NS 0.9% 1000 ml BAG 1,000 ML IV SCH (22:45)
[2020-06-01] MEDS: Buprenorphine 2 mg SL TAB SL SCH ×2 (01:49→08:22)
[2020-06-01 06:00] LABS: BUN/Creatinine Ratio 12.9 (8-20); Calcium 8.2 mg/dL (8.6-10.3); EGFR African American 146.9 (>60); EGFR Non-African American 121.4 (>60); Globulin 2.9 g/dL (2-4); Indirect Bilirubin 0.3 mg/dL (0.3-1.0); Potassium 3.5 mmol/L (3.5-5.0); Total Bilirubin 0.6 mg/dL (0.2-1.0); Total Protein 5.9 g/dL (6.4-8.9)
[2020-06-01 06:03] LABS: Hematocrit 40 % (42-52); Hemoglobin 13.8 g/dL (14.0-18.0); Mean Corpuscular HGB Conc 35 g/dL (31-36); Mean Corpuscular Hemoglobin 29 pg (27-31); Mean Corpuscular Volume 84 fL (80-94); Mean Platelet Volume 8.6 fL (7.4-10.4); Red Blood Count 4.79 10^6 /uL (4.18-5.48); Red Cell Distribution Width 14 % (10-15); White Blood Count 5.8 10^3/uL (3.5-10.8)
[2020-06-01 07:38] LABS: Platelet Count 90 10^3/uL (150-450)
[2020-06-01] MEDS ORDERED: Buprenorphine 2 mg SL TAB SL ONE (09:27)
[2020-06-01] MEDS ORDERED: Vancomycin per Pharmacy 1 EA NOTE FOLLOW UP PRN (13:25)
[2020-06-01] MEDS ORDERED: Vancomycin 1,250 MG in NS 0.9% 250 ml 250 ML IVPB ONE (14:00)
[2020-06-01] MEDS ORDERED: Magnesium Hydroxide LIQ 30 ML UDC PO PRN (19:45)
[2020-06-01] MEDS ORDERED: Senna TAB 8.6 mg TAB PO PRN (19:45)
[2020-06-01] MEDS: Vancomycin 1,250 MG in NS 0.9% 250 ml 250 ML IVPB SCH (22:29)
[2020-06-02] MEDS: Vancomycin 1,250 MG in NS 0.9% 250 ml 250 ML IVPB SCH ×2 (08:48→13:53)
[2020-06-02 12:21] VITALS: BP 105/65
[2020-06-03] MEDS ORDERED: Vancomycin Trough Check NOTE FOLLOW UP ONE (05:30)
[2020-06-03 10:29] LABS: ActiTest Interpretation severe activity; Alanine Aminotransferase (ALT) 502 U/L (7-55); Alpha-2-Macroglobulin, S 234 mg/dL (100 - 280); Bilirubin, Total, S 0.4 mg/dL (<=1.2); BioPredictive Serial Number 3126193; FibroTest Interpretation advanced fibrosis; Gamma Glutamyltransferase GGT 122 U/L (8 - 61)
== END 2020-06-02 14:40 | disposition home or self-care (01) ==
LOC: MED 10:41 → ED 10:41 → MED 06-01 01:07
PROVIDERS: ADMIT Hospitalist; ATTEND Internal Medicine

== ENCOUNTER 2022-05-23 05:51 | Observation (INO) ==
[2022-05-23 07:13] LABS: ABS Eosinophils 0.2 10^3/ul (0-0.6); ABS Monocytes 0.6 10^3/ul (0-0.8); Eosinophil % 2.2 %; Hematocrit 39 % (42-52); Hemoglobin 13.7 g/dL (14.0-18.0); Lymphocyte % 25.7 %; Mean Corpuscular HGB Conc 35 g/dL (31-36); Mean Corpuscular Hemoglobin 29 pg (27-31); Mean Corpuscular Volume 83 fL (80-94); Mean Platelet Volume 8.2 fL (7.4-10.4); Nucleated Red Blood Cells % 0.1; Platelet Count 203 10^3/uL (150-450); Red Blood Count 4.67 10^6 /uL (4.18-5.48); Red Cell Distribution Width 14 % (10-15); White Blood Count 7.9 10^3/uL (3.5-10.8)
[2022-05-23] MEDS ORDERED: Piperacillin/Tazobac ADVAN 3.375 GM in NS 0.9% 100 ml BAG 100 ML IV ONE (07:31)
[2022-05-23] MEDS ORDERED: NS 0.9% 1000 ml BAG 1,000 ML IV SCH ×2 (07:45→10:00)
[2022-05-23 08:00] LABS: Albumin 3.8 g/dL (3.2-5.2); Albumin/Globulin Ratio 1.2 (1-3); Calcium 9.5 mg/dL (8.6-10.3); Globulin 3.2 g/dL (2-4); Potassium 4.2 mmol/L (3.5-5.0); Total Bilirubin 1.4 mg/dL (0.2-1.0); eGFR CKD-EPI 107.6 (>60)
[2022-05-23] MEDS ORDERED: Vancomycin 1,500 MG in NS 0.9% 250 ml 250 ML IVPB ONE (08:00)
[2022-05-23 08:44] LABS: C Reactive Protein 85.34 mg/L (<8.01)
[2022-05-23 10:15] LABS: Erythrocyte Sed Rate 27 mm/Hr (0-14)
[2022-05-23] MEDS ORDERED: Zosyn per Pharmacy NOTE FOLLOW UP SCH (11:00)
[2022-05-23] MEDS ORDERED: Vancomycin per Pharmacy 1 EA NOTE FOLLOW UP SCH (11:00)
[2022-05-23] MEDS ORDERED: ZOSYN 3.375 GM Q8H per EXTENDED INFUSION IV ONE (12:00)
[2022-05-23] MEDS ORDERED: Enoxaparin 40 MG/0.4 ML SYR SUBCUT SCH (12:00)
[2022-05-23] MEDS ORDERED: Iohexol 350 (CONTRAST) 500 ML MDV IV ONE (12:01)
[2022-05-23 12:28] LABS: Urine Benzodiazepine Screen Presumptive Positive (None Detect); Urine Cannabinoids Screen Presumptive Positive (None Detect); Urine Opiates Screen None Detected (None Detect)
[2022-05-23 12:33] LABS: Hepatitis B Surface Antigen Nonreactive (Nonreactive)
[2022-05-23 12:50] LABS: Hepatitis B Surface Ab Not Immune (Immune)
[2022-05-23] MEDS ORDERED: Vancomycin 1000 MG in NS 0.9% 250 ML IVPB ONE (14:30)
[2022-05-23] MEDS ORDERED: Polyethylene Glycol 3350 17 GM PACKET PO PRN (15:26)
[2022-05-23] MEDS ORDERED: Polyethylene Glycol 3350 17 GM PACKET PO ONE (15:26)
[2022-05-23] MEDS ORDERED: Senna TAB 8.6 mg TAB PO SCH (16:00)
[2022-05-23] MEDS ORDERED: ZOSYN 3.375 GM Q8H per EXTENDED INFUSION IV SCH (16:00)
[2022-05-23 16:10] LABS: Urine Benzodiazepine Screen Presumptive Positive (None Detect); Urine Cannabinoids Screen Presumptive Positive (None Detect); Urine Opiates Screen None Detected (None Detect)
[2022-05-23] MEDS ORDERED: ZOSYN 3.375 GM Q6H - Intermittant 30 min Infusion IV ONE (17:30)
[2022-05-23 17:46] VITALS: BP 89/55
[2022-05-23 17:58] LABS: Urine Appearance Turbid; Urine Bilirubin Negative (Negative); Urine Blood Negative (Negative); Urine Color Yellow; Urine Glucose Negative (Negative); Urine Ketones Trace (Negative); Urine Nitrite Negative (Negative); Urine Protein Negative (Negative); Urine Specific Gravity 1.023 (1.002-1.030); Urine Urobilinogen Positive (Negative)
[2022-05-24] MEDS ORDERED: ZOSYN 3.375 GM Q6H - Intermittant 30 min Infusion IV SCH
[2022-05-24] MEDS ORDERED: Vancomycin 1000 MG in NS 0.9% 250 ML IVPB SCH
[2022-05-24] MEDS ORDERED: Vancomycin Trough Check NOTE FOLLOW UP ONE (06:00)
== END 2022-05-23 18:19 | disposition left against medical advice (07) ==
LOC: ED 05:51 → EDHOLD 05:51
PROVIDERS: ADMIT Hospitalist; ATTEND Hospitalist

== ENCOUNTER 2022-05-24 12:32 | Observation (INO) ==
[2022-05-24] MEDS ORDERED: NS 0.9% 1000 ml BAG 1,000 ML IV ONE ×2 (12:51→14:23)
[2022-05-24] MEDS ORDERED: Naloxone Nasal Spray 4 MG/0.1 ML NASAL.SPR INTRANASAL PRN (12:52)
[2022-05-24] MEDS ORDERED: Naloxone Nasal Spray 4 MG/0.1 ML NASAL.SPR INTRANASAL ONE (12:54)
[2022-05-24] MEDS ORDERED: Ondansetron ODT 4 mg TAB 4 MG TAB ONE (13:18)
[2022-05-24] MEDS ORDERED: Al Hydrox/Mg Hydrox/Simet LIQ 30 ML UDC PO ONE (14:21)
[2022-05-24 15:23] LABS: ABS Eosinophils 0.1 10^3/ul (0-0.6); ABS Lymphocytes 0.7 10^3/ul (1.0-4.8); ABS Monocytes 0.4 10^3/ul (0-0.8); Eosinophil % 1.2 %; Hematocrit 38 % (42-52); Hemoglobin 13.1 g/dL (14.0-18.0); Lymphocyte % 11.5 %; Mean Corpuscular HGB Conc 34 g/dL (31-36); Mean Corpuscular Hemoglobin 29 pg (27-31); Mean Corpuscular Volume 83 fL (80-94); Mean Platelet Volume 8.5 fL (7.4-10.4); Platelet Count 224 10^3/uL (150-450); Red Cell Distribution Width 14 % (10-15); White Blood Count 6.2 10^3/uL (3.5-10.8)
[2022-05-24] MEDS ORDERED: Piperacillin/Tazobac ADVAN 3.375 GM in NS 0.9% 100 ml BAG 100 ML IV ONE (15:38)
[2022-05-24] MEDS ORDERED: Vancomycin 1,000 MG in NS 0.9% 250 ml 250 ML IVPB ONE (15:38)
[2022-05-24 15:57] LABS: Albumin 3.9 g/dL (3.2-5.2); CO2 Carbon Dioxide 25 mmol/L (22-32); Calcium 8.8 mg/dL (8.6-10.3); Chloride 104 mmol/L (101-111); Sodium 134 mmol/L (135-145)
[2022-05-24 16:01] LABS: Anion Gap 5 mmol/L (2-11)
[2022-05-24 16:03] LABS: ALT 160 U/L (7-52); Albumin/Globulin Ratio 1.2 (1-3); Alkaline Phosphatase 80 U/L (35-149); Blood Urea Nitrogen 9 mg/dL (6-24); Globulin 3.3 g/dL (2-4); Glucose 140 mg/dL (70-100); Total Protein 7.2 g/dL (6.4-8.9); eGFR CKD-EPI 115.2 (>60)
[2022-05-24] MEDS ORDERED: Buprenorphine 2 mg SL TAB SL PRN (16:57)
[2022-05-24] MEDS ORDERED: Zosyn per Pharmacy NOTE FOLLOW UP SCH (17:00)
[2022-05-24] MEDS ORDERED: Enoxaparin 40 MG/0.4 ML SYR SUBCUT SCH (17:00)
[2022-05-24] MEDS ORDERED: Ondansetron 4 mg VIAL 2 MG/ML 2 ml VIAL IV PRN (17:00)
[2022-05-24] MEDS ORDERED: Vancomycin per Pharmacy 1 EA NOTE FOLLOW UP SCH (17:00)
[2022-05-24] MEDS ORDERED: oxyCODONE SR 10 mg TAB PO PRN (17:00)
[2022-05-24] MEDS ORDERED: LORazepam 2 mg VIAL 1 ml IV PUSH PRN (17:01)
[2022-05-24] MEDS ORDERED: Lorazepam PYXIS KEY PRN (17:01)
[2022-05-24 19:25] LABS: Erythrocyte Sed Rate 45 mm/Hr (0-14)
[2022-05-24] MEDS ORDERED: ZOSYN 3.375 GM x ONE DOSE over 30 miuntes IV (22:30)
[2022-05-24] MEDS ORDERED: Piperacillin/Tazobac 3.375 GM BAG ONE (23:51)
[2022-05-25] MEDS: Vancomycin 1,250 MG in NS 0.9% 250 ml 250 ML IVPB SCH ×2 (01:05→09:54)
[2022-05-25] MEDS: ZOSYN 3.375 GM Q8H per EXTENDED INFUSION IV SCH ×2 (05:21→14:16)
[2022-05-25 06:42] LABS: ABS Eosinophils 0.2 10^3/ul (0-0.6); ABS Lymphocytes 1.6 10^3/ul (1.0-4.8); ABS Monocytes 0.5 10^3/ul (0-0.8); ABS Neutrophils 3.5 10^3/ul (1.5-7.7); Eosinophil % 3.5 %; Hematocrit 37 % (42-52); Hemoglobin 12.7 g/dL (14.0-18.0); Lymphocyte % 27.6 %; Mean Corpuscular HGB Conc 34 g/dL (31-36); Mean Corpuscular Hemoglobin 29 pg (27-31); Mean Corpuscular Volume 84 fL (80-94); Mean Platelet Volume 8.4 fL (7.4-10.4); Nucleated Red Blood Cells % 0.1; Platelet Count 187 10^3/uL (150-450); Red Blood Count 4.42 10^6 /uL (4.18-5.48); Red Cell Distribution Width 14 % (10-15); White Blood Count 5.8 10^3/uL (3.5-10.8)
[2022-05-25 07:26] LABS: Calcium 8.7 mg/dL (8.6-10.3); Magnesium 1.9 mg/dL (1.9-2.7); Potassium 3.9 mmol/L (3.5-5.0)
[2022-05-25 07:32] LABS: eGFR CKD-EPI 112.7 (>60)
[2022-05-25] MEDS ORDERED: Nicotine GUM 4MG FRUIT FLAVOR PO PRN (09:28)
[2022-05-25] MEDS ORDERED: Nicotine Lozenge mini 4 MG LOZNG.MINI MT PRN (09:28)
[2022-05-25] MEDS ORDERED: DALBAVANCIN HCL (NF) 500 MG/25 ML VIAL IVPB ONE (14:19)
[2022-05-25] MEDS ORDERED: DALVANCE 1500 MG IV ONCE (for CrCl >/= 30 or regular HD) IVPB ONE (15:00)
[2022-05-25] MEDS ORDERED: Vancomycin Trough Check NOTE FOLLOW UP ONE (15:30)
[2022-05-25 16:03] VITALS: BP 102/71
== END 2022-05-26 16:30 | disposition home or self-care (01) ==
LOC: EDHOLD 12:32 → ED 12:32 → SUATTDRO 16:21 → EDHOLD 05-25 04:16
PROVIDERS: ADMIT Hospitalist; ATTEND Internal Medicine

== ENCOUNTER 2023-11-30 05:27 | Inpatient (IN) ==
[2023-11-30] MEDS: Lactated Ringers 1000 ml BAG 1,000 ML IV ONE ×2 (06:49→13:44)
[2023-11-30 06:55] LABS: ABS Basophils 0.1 10^3/uL (0.0-0.1); ABS Eosinophils 0.3 10^3/uL (0.0-0.5); ABS Lymphocytes 2.5 10^3/uL (1.0-4.8); ABS Monocytes 1.3 10^3/uL (0.0-1.1); ABS Neutrophils 11.2 10^3/uL (1.5-7.6); ABS Nucleated RBC 0.03 10^3/ul; Eosinophil % 1.7 %; Hematocrit 45.2 % (38-53); Hemoglobin 15.5 g/dL (13.2-16.3); Lymphocyte % 16.2 %; Mean Corpuscular Hemoglobin 28.5 pg (27-33); Mean Corpuscular Hgb Conc 34.4 g/dL (31-36); Mean Platelet Volume 8.8 fL (7.5-11.2); Nucleated Red Blood Cells % 0.2 %/100WBC (0.0-0.8); Platelet Count 297 10^3/uL (150-450); Red Blood Count 5.45 10^6/uL (4.06-5.63); Red Cell Distribution Width 13.2 % (12-17); White Blood Count 15.4 10^3/uL (3.6-10.2)
[2023-11-30 07:23] LABS: Albumin/Globulin Ratio 1.1 (1-3); C Reactive Protein 105.96 mg/L (<8.01); Calcium 9.4 mg/dL (8.6-10.3); Creatinine, Serum 0.64 mg/dL (0.67-1.17); Globulin 3.6 g/dL (2-4); Potassium 3.8 mmol/L (3.5-5.0); Total Bilirubin 1.6 mg/dL (0.2-1.0); Total Protein 7.6 g/dL (6.4-8.9); eGFR CKD-EPI 115.3 (>60)
[2023-11-30] MEDS: Ondansetron 4 mg VIAL 2 MG/ML 2 ml VIAL IV ONE (07:34)
[2023-11-30] MEDS: Morphine 4 MG/ML VIAL (1 ml) IV ONE (07:34)
[2023-11-30] MEDS: Acetaminophen IV 1 GM/100ML 1,000 MG/100 ML BAG IV ONE (07:35)
[2023-11-30] MEDS: Iohexol 350 (CONTRAST) 500 ML MDV IV ONE (09:06)
[2023-11-30] MEDS: Piperacillin/Tazobac 3.375 BAG 3.375 GM/100 ML BAG IV ONE (12:36)
[2023-11-30] MEDS: Vancomycin 1,500 MG in NS 0.9% 250 ml 250 ML IVPB ONE (13:44)
[2023-11-30] MEDS ORDERED: Nicotine GUM 2MG FRUIT FLAVOR PO PRN (14:59)
[2023-11-30] MEDS: Enoxaparin 40 MG/0.4 ML SYR SUBCUT SCH (15:41)
[2023-11-30] MEDS ORDERED: Vancomycin 1,500 MG in NS 0.9% 250 ml 250 ML IVPB SCH (15:51)
[2023-11-30] MEDS: cefTRIAXone 1 gm/50 mL D5W 1 GM/50 ML BAG IV SCH (16:48)
[2023-11-30] MEDS ORDERED: Vancomycin per Pharmacy 1 EA NOTE FOLLOW UP PRN (17:15)
[2023-11-30] MEDS: Vancomycin 1,250 MG in NS 0.9% 250 ml 250 ML IVPB SCH (22:16)
[2023-11-30] MEDS: HYDROmorphone 1 MG/1 ML SYRINGE IV PRN (22:21)
[2023-12-01] MEDS: HYDROmorphone 1 MG/1 ML SYRINGE IV PRN (01:59)
[2023-12-01 15:04] LABS: ABS Eosinophils 0.1 10^3/uL (0.0-0.5); ABS Lymphocytes 1.4 10^3/uL (1.0-4.8); ABS Monocytes 0.4 10^3/uL (0.0-1.1); ABS Neutrophils 3.4 10^3/uL (1.5-7.6); ABS Nucleated RBC 0.01 10^3/ul; Eosinophil % 2.5 %; Hematocrit 41.4 % (38-53); Hemoglobin 14.5 g/dL (13.2-16.3); Lymphocyte % 26.2 %; Mean Corpuscular Hemoglobin 28.8 pg (27-33); Mean Corpuscular Hgb Conc 34.9 g/dL (31-36); Mean Corpuscular Volume 82.5 fL (80-97); Mean Platelet Volume 8.3 fL (7.5-11.2); Nucleated Red Blood Cells % 0.1 %/100WBC (0.0-0.8); Platelet Count 168 10^3/uL (150-450); Red Blood Count 5.02 10^6/uL (4.06-5.63); Red Cell Distribution Width 13.2 % (12-17); White Blood Count 5.4 10^3/uL (3.6-10.2)
[2023-12-01 16:23] LABS: Albumin 3.4 g/dL (3.2-5.2); Albumin/Globulin Ratio 1.2 (1-3); Calcium 8.7 mg/dL (8.6-10.3); Creatinine, Serum 0.6 mg/dL (0.67-1.17); Globulin 2.9 g/dL (2-4); Potassium 3.4 mmol/L (3.5-5.0); Total Bilirubin 0.8 mg/dL (0.2-1.0); Total Protein 6.3 g/dL (6.4-8.9); eGFR CKD-EPI 117.6 (>60)
[2023-12-01] MEDS: Vancomycin Trough Check NOTE FOLLOW UP ONE (17:06)
[2023-12-03] MEDS: Ondansetron 4 mg VIAL 2 MG/ML 2 ml VIAL IV PRN (23:49)
[2023-12-04 06:38] LABS: Creatinine, Serum 0.71 mg/dL (0.67-1.17); Vancomycin Trough 11.4 mcg/mL; eGFR CKD-EPI 111.8 (>60)
[2023-12-04] MEDS: Vancomycin Trough Check NOTE FOLLOW UP ONE (07:28)
[2023-12-04] MEDS: cefTRIAXone 1 GM Q24H (ADVAN) IVPB SCH (16:57)
[2023-12-04] MEDS: Amoxicillin/Clavul 875/125 TAB (Augmentin 875 tab) PO SCH (20:44)
[2023-12-05] MEDS: Prochlorperazine 5 mg/ml 2 ml VIAL (10 mg) IV PRN (05:21)
[2023-12-05] MEDS ORDERED: cefTRIAXone 1 gm/50 mL D5W 1 GM/50 ML BAG IV SCH (16:00)
[2023-12-07 05:53] VITALS: BP 137/71
== END 2023-12-07 08:00 | DRG 603 ==
LOC: ED 05:27 → EDHOLD 05:27 → MED 17:33 → SUATTDRO 12-02 13:00
PROVIDERS: ADMIT Internal Medicine; ATTEND Internal Medicine